=== PATIENT | male | born 1975 | race Caucasian/White ===

== ENCOUNTER 2016-11-02 12:58 | Emergency (ER) | payer OTHER ==
[2016-11-02] MEDS ORDERED: KETOROLAC 60 MG/2 ML VIAL IM STA (13:27)
[2016-11-02] MEDS ORDERED: ACETAMINOPHEN 325 MG TABLET PO STA (13:27)
[2016-11-02] MEDS ORDERED: ACETAMINOPHEN 325 MG TABLET PO ONE (13:32)
[2016-11-02] MEDS ORDERED: KETOROLAC 60 MG/2 ML VIAL ONE (13:32)
[2016-11-02] MEDS ORDERED: AZITHROMYCIN 250 MG TABLET PO STA (14:12)
[2016-11-02] MEDS ORDERED: AZITHROMYCIN 250 MG TABLET PO ONE (14:13)
== END 2016-11-02 14:25 | disposition home or self-care (01) ==
DX: J18.1 Lobar pneumonia, unspecified organism (principal); G47.30 Sleep apnea, unspecified; G40.909 Epilepsy, unspecified, not intractable, without status epilepticus
CPT/HCPCS: 71020; 87275; 87276; 96372; 99283; 99284; A9270

== ENCOUNTER 2017-05-27 17:00 | Emergency (ER) | payer OTHER ==
[2017-05-27] MEDS ORDERED: LIDOCAINE 2%-EPI 1:100000 20 ML MDV SUBQ STA (17:49)
--- NOTE | 2017-05-27 17:50 | ED Physician Documentation ---
PD HPI UPPER EXT INJURY - Stated complaint Stated Complaint: LT HAND LAC - Chief complaint Chief Complaint: Laceration - History obtained from History obtained from: Patient - History of Present Illness Location: Left (Right-handed gentleman, up-to-date on tetanus, lacerated his first dorsal webspace of the left hand with a broken drill bit while working at home just prior to arrival, he wonders if there is retained drill bit. No weakness, numbness, or tingling.) Review of Systems Constitutional: denies: Fever, Chills Respiratory: denies: Dyspnea, Cough GI: denies: Abdominal Pain, Nausea, Vomiting PD PAST MEDICAL HISTORY - Past Medical History Respiratory: CPAP use Neuro: Seizure disorder, Other Musculoskeletal: Chronic back pain - Past Surgical History Past Surgical History: Yes General: Other Ortho: Carpal Tunnel surgery, Other - Present Medications Home Medications: Ambulatory Orders Medication Instructions Recorded Confirmed Lisinopril 40 mg PO DAILY 11/02/16 05/27/17 [place] 0 mg PO DAILY 11/02/16 05/27/17 Morphine Sulfate 15 mg PO PRN PRN 11/02/16 05/27/17 Trazodone HCl 200 mg PO DAILY 11/02/16 05/27/17 Propranolol [Inderal] 0 mg PO DAILY 05/27/17 05/27/17 Sertraline [Zoloft] 0 mg PO DAILY 05/27/17 05/27/17 - Allergies Allergies/Adverse Reactions: Allergies Allergy/AdvReac Type Severity Reaction Status Date / Time bupropion HCl * AdvReac Unknown Verified 05/27/17 17:13 [From Wellbutrin] oxycodone AdvReac Nausea Verified 05/27/17 17:13 - Social History Does the pt smoke?: No Smoking Status: Never smoker Does the pt drink ETOH?: No Does the pt have substance abuse?: No - Immunizations Immunizations are current?: Yes - POLST Patient has POLST: No PD ED PE NORMAL - Vitals Vital signs reviewed: Yes - General General: Alert and oriented X 3, No acute distress - Extremities Extremities: Other (In the dorsal first webspace of the left hand there is a 1.5 cm shallow laceration without extensor tendon damage of the first or second finger or neurovascular compromise of either of those fingers. There is no obvious foreign body.) - Neuro Neuro: Alert and oriented X 3, Normal speech - Psych Psych: Normal mood, Normal affect Results - Vitals Vitals: Vital Signs - 24 hr 05/27/17 17:07 Temperature 36.3 C L Heart Rate 56 L Respiratory 16 Rate Blood Pressure 136/84 H O2 Saturation 97 Oxygen O2 Source Room air - Rads (name of study) L hand 2v Radiology: EMP read contemporaneously (No FB) Procedures - Laceration (location) L hand Length in cm: 1.5 Wound type: Linear Neurovascular status: Sensory intact, Motor intact, Vascular intact Tendon involvement: Tendon intact Anesthesia: Lidocaine 2% with epi Wound Preparation: Hibiclens, Irrigated copiously NS Skin layer closure: Nylon, Interrupted, Size #-0 - enter number (4-0), Sutures - enter # (4) Other: Patient tolerated well, No complications, Neurovascular intact, Tetanus UTD Complexity: Simple Departure - Departure Disposition: 01 Home, Self Care Clinical Impression: Laceration Condition: Good Record reviewed to determine appropriate education?: Yes Instructions: ED Laceration Hand Comments: Come back for any signs of infection which would include: Redness, swelling, drainage, increased pain, or fevers. Follow-up with your physician in 10-14 days for suture removal. Your blood pressure was elevated today on check into the emergency department. This does not mean that you have hypertension, it is a common phenomenon to come to the emergency department and have elevated blood pressure. I recommend that she see her primary care physician within the week to have it rechecked when you are feeling better.
[2017-05-27] MEDS ORDERED: LIDOCAINE MPF 2%-EPI 1:200000 20 ML VIAL ONE (17:53)
--- NOTE | 2017-05-27 18:27 | XRAY Preliminary Report ---
Exam: XR Hand 2 View LT IMPRESSION: 1. No acute fracture or dislocation of the left hand. 2. Soft tissue swelling at the thenar eminence. 3. No foreign body seen. [facility] SITE ID: [id number]
--- NOTE | 2017-05-27 18:30 | XRAY Report ---
EXAM: LEFT HAND RADIOGRAPHY EXAM DATE: 05/27/2017 06:14 PM. CLINICAL HISTORY: Lac dorsal 1st webspace, ? metal FB. COMPARISON: None. TECHNIQUE: 2 views. FINDINGS: Bones: Normal. No fractures or bone lesions. Joints: Normal. No subluxations. Soft Tissues: Soft tissue swelling noted at the thenar eminence. No radiopaque foreign objects are se en. IMPRESSION: 1. No acute fracture or dislocation of the left hand. 2. Soft tissue swelling at the thenar eminence. 3. No foreign body seen. [facility] Referring Provider Line: [phone] SITE ID: [id number]
[2017-05-27 18:41] VITALS: BP 131/83
== END 2017-05-27 18:50 | disposition home or self-care (01) ==
LOC: ED 17:00
DX: S61.412A Laceration without foreign body of left hand, initial encounter (principal); W29.8XXA Contact with other powered hand tools and household machinery, initial encounter; Y92.019 Unspecified place in single-family (private) house as the place of occurrence of the external cause
CPT/HCPCS: 12001; 99283

== ENCOUNTER 2017-09-23 11:11 | Outpatient (CLI) | payer OTHER ==
--- NOTE | 2017-09-23 17:00 | MRI Report ---
EXAM: RIGHT SHOULDER MRI WITHOUT CONTRAST EXAM DATE: 09/23/2017 11:47 AM. CLINICAL HISTORY: Right shoulder pain. History of rotator cuff labral debridement surgery. Increasing pain. COMPARISON: Prior MRI 06/24/2012. TECHNIQUE: Multiplanar, multisequence T1-weighted and fluid-sensitive sequences of the shoulder witho ut contrast. Other: None. FINDINGS: Rotator cuff: 3 mm focus of intrasubstance insertional tear of the supraspinatus. Mild patchy edema i nvolving distal fibers of the supraspinatus and infraspinatus. No rotator cuff muscle atrophy or fatt y replacement. Long head biceps tendon: Absence of the intra-articular long head biceps tendon. Postsurgical change of previous biceps tenodesis. Blunting of the superior labrum consistent with previous partial resect ion. Some heterogenous signal within the inferior labrum. Unchanged from prior. No definitive labral tear on this non-arthrographic study. Bones and articular surfaces: No significant articular cartilage defects are seen. Acromioclavicular joint: Moderate degenerative change with osteophyte formation. Type II acromion. Sm all amount of fluid in the subacromial subdeltoid bursa. IMPRESSION: 1. Intact biceps tenodesis. 2. Mild supraspinatus and infraspinatus tendinosis. 3. Tiny 3 mm low-grade intrasubstance insertional tear of the supraspinatus. 4. Minimal subacromial subdeltoid bursitis. 5. Moderate degenerative change at the acromioclavicular joint. [facility] MUSCULOSKELETAL [facility]IOLOGY SECTION Referring Provider Line: [phone] SITE ID: [id number]
== END 2017-09-23 11:12 | disposition home or self-care (01) ==
LOC: DI 11:11
PROVIDERS: ATTEND Physician Assistant
DX: M75.101 Unspecified rotator cuff tear or rupture of right shoulder, not specified as traumatic (principal); M75.51 Bursitis of right shoulder; M19.011 Primary osteoarthritis, right shoulder; M75.91 Shoulder lesion, unspecified, right shoulder

== ENCOUNTER 2017-12-04 22:09 | Emergency (ER) | payer OTHER ==
[2017-12-04] MEDS ORDERED: SODIUM CHLORIDE 0.9% 1,000 ML IV ONE (22:35)
[2017-12-04] MEDS ORDERED: ONDANSETRON 4 MG/2 ML VIAL IVP STA (22:35)
[2017-12-04] MEDS ORDERED: METOCLOPRAMIDE 10 MG/2 ML VIAL IVP STA (22:36)
[2017-12-04] MEDS ORDERED: KETOROLAC 60 MG/2 ML VIAL IVP STA (22:36)
[2017-12-04] MEDS ORDERED: diphenhydrAMINE INJ 50 MG/ML VIAL IVP STA (22:36)
[2017-12-04 22:49] LABS: BASOPHILS # (AUTO) 0.2 10^3/uL (0.0-0.1); BASOPHILS % (AUTO) 1.5 %; EOSINOPHILS # (AUTO) 0.3 10^3/uL (0.0-0.7); EOSINOPHILS % (AUTO) 2.7 %; HGB - HEMOGLOBIN 14.7 g/dL (14.0-18.0); LYMPHOCYTES # (AUTO) 2.6 10^3/uL (1.5-3.5); LYMPHOCYTES % (AUTO) 23.5 %; MEAN CORPUSCULAR HEMOGLOBIN 30.8 pg (27.0-31.0); MEAN CORPUSCULAR HGB CONC 34.6 g/dL (32.0-36.0); MEAN CORPUSCULAR VOLUME 88.9 fL (80.0-94.0); MEAN PLATELET VOLUME 7.7 fL (7.4-11.4); MONOCYTES % (AUTO) 9.5 %; NEUTROPHILS # (AUTO) 6.9 10^3/uL (1.5-6.6); NEUTROPHILS % (AUTO) 62.8 %; PLT - PLATELET COUNT 262 10^3/uL (130-450); RED BLOOD COUNT 4.76 10^6/uL (4.70-6.10); RED CELL DISTRIBUTION WIDTH 13.5 % (12.0-15.0); WHITE BLOOD COUNT 10.9 x10^3/uL (4.8-10.8)
--- NOTE | 2017-12-04 23:17 | CT Preliminary Report ---
Exam: CT HEAD W/O IMPRESSION: Normal head CT. [facility] SITE ID: [id number]
--- NOTE | 2017-12-04 23:27 | CT Report ---
EXAM: CT HEAD EXAM DATE: 12/04/2017 10:59 PM. CLINICAL HISTORY: Recurrent headaches, vomiting and dizziness. COMPARISON: Brain MRI from 10/25/[address] from 08/10/2016. TECHNIQUE: Multiaxial CT images were obtained from the foramen magnum to the vertex. Reformats: Coron al. IV contrast: None. In accordance with CT protocol optimization, one or more of the following dose reduction techniques w ere utilized for this exam: automated exposure control, adjustment of mA and/or KV based on patient s ize, or use of iterative reconstructive technique. FINDINGS: Parenchyma: No intraparenchymal hemorrhage. No evidence of mass, midline shift, or CT findings of inf arction. Montano-white differentiation is distinct. Extraaxial Spaces: Normal for age. No subdural or epidural collections identified. Ventricles: Normal in size and position. Sinuses and Orbits: Imaged paranasal sinuses, orbits, and mastoids show no significant abnormality. Bones: No evidence of fracture or calvarial defect. IMPRESSION: Normal head CT. [facility] Referring Provider Line: [phone] SITE ID: [id number]
[2017-12-04 23:34] LABS: ALBUMIN 4.5 g/dL (3.2-5.5); ALBUMIN/GLOBULIN RATIO 1.5 (1.0-2.2); CALCIUM 9.2 mg/dL (8.5-10.3); CREATININE 0.8 mg/dL (0.6-1.2); TOTAL PROTEIN 7.5 g/dL (6.7-8.2)
[2017-12-05] MEDS ORDERED: MECLIZINE 12.5 MG TABLET PO STA (00:49)
[2017-12-05 00:59] LABS: LIPASE 490 U/L (22-51)
[2017-12-05 01:00] LABS: AMYLASE 853 U/L (28-100)
[2017-12-05] MEDS ORDERED: SODIUM CHLORIDE 0.9% 1,000 ML IV ONE (01:07)
[2017-12-05 01:11] LABS: BILIRUBIN,URINE NEGATIVE (NEGATIVE); GLUCOSE, URINE (UA) NEGATIVE (NEGATIVE); KETONES,URINE (UA) NEGATIVE (NEGATIVE); LEUKOCYTE ESTERASE, URINE NEGATIVE (NEGATIVE); NITRITE,URINE NEGATIVE (NEGATIVE); OCCULT BLOOD,URINE NEGATIVE (NEGATIVE); PROTEIN,URINE NEGATIVE (NEGATIVE); UROBILINOGEN,URINE 0.2 (NORMAL) E.U./dL (NORMAL)
[2017-12-05 01:14] LABS: CLARITY,URINE CLEAR (CLEAR)
[2017-12-05] MEDS ORDERED: IOPAMIDOL-300 100 ML VIAL ONE (01:22)
[2017-12-05] MEDS ORDERED: IOPAMIDOL-300 100 ML VIAL IVP ONE (01:40)
--- NOTE | 2017-12-05 02:09 | CT Preliminary Report ---
Exam: CT ABDOMEN/PELVIS W/ IMPRESSION: Negative abdomen and pelvis CT. Of note, this does not exclude the clinical diagnosis of pancreatitis . [id number]
--- NOTE | 2017-12-05 02:20 | CT Report ---
EXAM: CT ABDOMEN AND PELVIS EXAM DATE: 12/05/2017 01:44 AM. CLINICAL HISTORY: Vomiting, elevated lipase and amylase. COMPARISONS: None. TECHNIQUE: Routine helical CT imaging was performed through the abdomen and pelvis. IV contrast: 100 mL Isovue 370. Enteric contrast: No . Reconstructions: Coronal and sagittal. In accordance with CT protocol optimization, one or more of the following dose reduction techniques w ere utilized for this exam: automated exposure control, adjustment of mA and/or KV based on patient s ize, or use of iterative reconstructive technique. FINDINGS: Lung Bases: Unremarkable. Liver: Unremarkable. No suspicious masses. Gallbladder/Bile Ducts: Unremarkable. Spleen: Unremarkable. Pancreas: Unremarkable. Adrenal Glands: Unremarkable. Kidneys: Unremarkable. No suspicious masses or hydronephrosis. Peritoneal Cavity/Bowel: No bowel obstruction or inflammatory process seen. No free air or significan t free fluid. No masses or adenopathy. The appendix is normal. No excessive stool burden. Pelvic Organs: Bladder and prostate appear unremarkable. Vasculature: No aneurysms or other significant abnormality. Bones: No significant abnormality. Other: Previous right inguinal hernia repair. IMPRESSION: Negative abdomen and pelvis CT. Of note, this does not exclude the clinical diagnosis of pancreatitis . [facility] Referring Provider Line: [phone] SITE ID: [id number]
[2017-12-05 02:23] VITALS: BP 130/83
--- NOTE | 2017-12-05 02:31 | ED Physician Documentation ---
History of Present Illness - Stated complaint Stated Complaint: GARRETT/VOMITING - Chief complaint Chief Complaint: Abd Pain - History obtained from History obtained from: Patient, Family - History of Present Illness Timing: How many weeks ago (10) - Additonal information Additional information: patient is a 42 year old male with a history of anxiety, depression ptsd who is presenting to the emergency department for headache, nausea and dysequilibrium. patient states that since september he has felt off balance. he reports that he has felt slighly off balance, similar to how you feel if you have been on a boat. patient states that he had had nausea and vomiting the last couple of days. patient sates that he had a nausea medicine at home but he ran out of ReadOz so he ended up throwing up his meds. Patient states that since he has been throwing up he has developed a headache. Review of Systems Constitutional: denies: Fever, Chills, Myalgias Eyes: denies: Decreased vision, Photophobia Ears: denies: Ear pain, Drainage/discharge Nose: reports: Reviewed and negative Throat: reports: Sore throat Cardiac: denies: Chest pain / pressure Respiratory: denies: Cough, Wheezing GI: reports: Nausea, Vomiting. denies: Abdominal Pain, Abdominal Swelling, Constipation, Diarrhea : denies: Dysuria, Frequency Skin: denies: Rash, Lesions Neurologic: reports: Reviewed and negative Immunocompromised: denies: Immunocompromised PD PAST MEDICAL HISTORY - Past Medical History Respiratory: CPAP use Neuro: Seizure disorder, Other Musculoskeletal: Chronic back pain - Past Surgical History Past Surgical History: Yes General: Other Ortho: Carpal Tunnel surgery, Other - Present Medications Home Medications: Ambulatory Orders Medication Instructions Recorded Confirmed Lisinopril 40 mg PO DAILY 11/02/16 05/27/17 [place] 0 mg PO DAILY 11/02/16 05/27/17 Morphine Sulfate 15 mg PO PRN PRN 11/02/16 05/27/17 Trazodone HCl 200 mg PO DAILY 11/02/16 05/27/17 Propranolol [Inderal] 0 mg PO DAILY 05/27/17 05/27/17 Sertraline [Zoloft] 0 mg PO DAILY 05/27/17 05/27/17 Meclizine [Antivert] 25 mg PO Q6H #20 tablet 12/05/17 Ondansetron Odt [Zofran] 4 mg TL Q6H PRN #20 tablet 12/05/17 - Allergies Allergies/Adverse Reactions: Allergies Allergy/AdvReac Type Severity Reaction Status Date / Time bupropion HCl * AdvReac Unknown Verified 05/27/17 17:13 [From Wellbutrin] oxycodone AdvReac Nausea Verified 05/27/17 17:13 - Social History Does the pt smoke?: No Smoking Status: Never smoker Does the pt drink ETOH?: No Does the pt have substance abuse?: No - Immunizations Immunizations are current?: Yes - POLST Patient has POLST: No PD ED PE NORMAL - General General: Alert and oriented X 3, No acute distress, Well developed/nourished - HEENT HEENT: Atraumatic, PERRL, Moist mucous membranes - Neck Neck: Supple, no meningeal sign, No bony TTP - Cardiac Cardiac: RRR, No murmur - Respiratory Respiratory: No respiratory distress - Abdomen Abdomen: Soft, Non tender, Non distended - Derm Derm: Normal color, Warm and dry, No rash - Extremities Extremities: No deformity, Normal ROM s pain, No calf tenderness / cord - Neuro Neuro: Alert and oriented X 3, family medicine resident 2-12 intact, No motor deficit, No sensory deficit, Normal speech Eye Opening: Spontaneous Motor: Obeys Commands Verbal: Oriented GCS Score: 15 Results - Vitals Vitals: Vital Signs - 24 hr 12/04/17 12/04/17 12/05/17 22:15 23:36 02:22 Temperature 35.9 C L 37.2 C 36.8 C Heart Rate 59 L 63 64 Respiratory 18 19 18 Rate Blood Pressure 146/109 H 129/83 H 130/83 H O2 Saturation 100 97 98 Oxygen O2 Source Room air - Labs Labs: Laboratory Tests 12/04/17 12/04/17 12/04/17 01:02 22:45 22:45 WBC 10.9 H RBC 4.76 Hgb 14.7 Hct 42.3 MCV 88.9 MCH 30.8 MCHC 34.6 RDW 13.5 Plt Count 262 MPV 7.7 Neut # 6.9 H Lymph # 2.6 Jack # 1.0 Eos # 0.3 Baso # 0.2 H Absolute Nucleated RBC 0.00 Nucleated RBC % 0.0 Sodium 139 Potassium 3.9 Chloride 106 Carbon Dioxide 26 Anion Gap 7.0 BUN 14 Creatinine 0.8 Estimated GFR (MDRD) 105 Glucose 99 Calcium 9.2 Total Bilirubin 1.0 AST 22 ALT 24 Alkaline Phosphatase 50 Total Protein 7.5 Albumin 4.5 Globulin 3.0 Albumin/Globulin Ratio 1.5 Amylase Lipase 530 H Urine Color YELLOW Urine Clarity CLEAR Urine pH 6.0 Ur Specific [place] 1.015 Urine Protein NEGATIVE Urine Glucose (UA) NEGATIVE Urine Ketones NEGATIVE Urine Occult Blood NEGATIVE Urine Nitrite NEGATIVE Urine Bilirubin NEGATIVE Urine Urobilinogen 0.2 (NORMAL) Ur Leukocyte Esterase NEGATIVE Ur Microscopic Review NOT INDICATED Urine Culture Comments NOT INDICATED 12/04/17 22:45 WBC RBC Hgb Hct MCV MCH MCHC RDW Plt Count MPV Neut # Lymph # Jack # Eos # Baso # Absolute Nucleated RBC Nucleated RBC % Sodium Potassium Chloride Carbon Dioxide Anion Gap BUN Creatinine Estimated GFR (MDRD) Glucose Calcium Total Bilirubin AST ALT Alkaline Phosphatase Total Protein Albumin Globulin Albumin/Globulin Ratio Amylase 853 H* Lipase 490 H Urine Color Urine Clarity Urine pH Ur Specific [place] Urine Protein Urine Glucose (UA) Urine Ketones Urine Occult Blood Urine Nitrite Urine Bilirubin Urine Urobilinogen Ur Leukocyte Esterase Ur Microscopic Review Urine Culture Comments - Rads (name of study) ct head Radiology: Final report received (normal ) ct abd pelvis Radiology: Final report received (normal) PD MEDICAL DECISION MAKING - ED course Complexity details: reviewed old records, reviewed results, re-evaluated patient , considered differential, d/w patient, d/w family ED course: Patient was seen and examined at bedside. IV access was gained and labs were drawn. Patient was treated with ns bolus, toradol, reglan, bendadryl and zofran. CT head was ordered due to the duration of symptoms and family history of brain CA. patient's CT head was within normal limits. When patient's labs came back he was found to have elevated lipase, and it remained elevated on repeat. Patient had no epigastric pain. CT was ordered to evaluate the pancreas because clinically he did not fit the picture. CT abd pelvis was within normal limits. patient had no episodes of emesis while in the emergency department and was stable for discharge with outpatient follow up. Departure - Departure Disposition: 01 Home, Self Care Clinical Impression: Gastritis, Generalized headaches Condition: Good Instructions: ED Gastritis Follow-Up: Venus Jasso MD [Primary Care Provider] - Within 1 week Prescriptions: Meclizine [Antivert] 25 mg PO Q6H #20 tablet Ondansetron Odt [Zofran] 4 mg TL Q6H PRN #20 tablet PRN Reason: Nausea / Vomiting Comments: Your diagnostics today were within normal limits aside from the lipase levels which can correlate with pancreatic disease but your CT of your pancreas revealed no abnormality. It is important to stay well hydrated. You can take the zofran as needed for nausea and vomiting. You should follow up with your doctor to re-check your pancreas levels. You may return to the emergency department at any time for new, worsening or uncontrollable symptoms.
== END 2017-12-05 02:47 | disposition home or self-care (01) ==
LOC: ED 22:09
DX: K29.70 Gastritis, unspecified, without bleeding (principal); R51 Headache; R74.8 Abnormal levels of other serum enzymes; Z80.8 Family history of malignant neoplasm of other organs or systems
CPT/HCPCS: 36415; 70450; 74177; 80053; 81003; 82150; 83690; 85025; 96361; 96374; 99283; 99284; A9270; Q9967; 81001; 87086

== ENCOUNTER 2018-07-12 15:12 | Emergency (ER) | payer MEDICARE, OTHER ==
[2018-07-12] MEDS ORDERED: METHOCARBAMOL 500 MG TABLET PO STA (15:58)
[2018-07-12] MEDS ORDERED: MORPHINE 10 MG/ML VIAL IM STA (15:58)
[2018-07-12] MEDS ORDERED: DEXAMETHASONE 10 MG/ML VIAL PO STA (15:58)
[2018-07-12] MEDS ORDERED: KETOROLAC 60 MG/2 ML VIAL IM STA (15:58)
--- NOTE | 2018-07-12 16:03 | ED Physician Documentation ---
PD HPI BACK PAIN - Stated complaint Stated Complaint: BACK PX - Chief complaint Chief Complaint: Back Pain - History obtained from History obtained from: Patient, Family - History of Present Illness Timing - onset: How many days ago (2) Timing - duration: Days (2) Timing - details: Gradual onset Pain level max: 10 Pain level now: 5 Location: Lower, Right Quality: Pain, Spasm, Similar to prior episodes Associated symptoms: No: Fever, Weakness, Numbness, Incontinent of urine, Unable to urinate, Hematuria, Incontinent of stool Improves with: Rest Worsened by: Lifting (states moves furniture) Contributing factors: Lifting Similar symptoms before: Diagnosis (has chronic back pain) Recently seen: Not recently seen Review of Systems Constitutional: denies: Fever, Chills Cardiac: denies: Chest pain / pressure Respiratory: denies: Dyspnea GI: denies: Abdominal Pain, Vomiting, Diarrhea Skin: denies: Rash Musculoskeletal: denies: Neck pain Neurologic: denies: Focal weakness, Numbness, Headache PD PAST MEDICAL HISTORY - Past Medical History Past Medical History: Yes Respiratory: CPAP use Musculoskeletal: Chronic back pain - Past Surgical History Past Surgical History: Yes General: Appendectomy, Other Ortho: Shoulder arthroplasty, Carpal Tunnel surgery, Other - Present Medications Home Medications: Ambulatory Orders Medication Instructions Recorded Confirmed Lisinopril 40 mg PO DAILY 11/02/16 05/27/17 [place] 0 mg PO DAILY 11/02/16 05/27/17 Morphine Sulfate 15 mg PO PRN PRN 11/02/16 05/27/17 Trazodone HCl 200 mg PO DAILY 11/02/16 05/27/17 Propranolol [Inderal] 0 mg PO DAILY 05/27/17 05/27/17 Sertraline [Zoloft] 0 mg PO DAILY 05/27/17 05/27/17 Meclizine [Antivert] 25 mg PO Q6H #20 tablet 12/05/17 Ondansetron Odt [Zofran] 4 mg TL Q6H PRN #20 tablet 12/05/17 Carisoprodol [Soma] 350 mg PO Q8H PRN #20 tablet 07/12/18 Hydrocodone/Acetaminophen 1 - 2 each PO Q6H PRN #14 tablet 07/12/18 [Hydrocodon-Acetaminophen 5-325] Meloxicam [Mobic] 15 mg PO DAILY PRN #20 tablet 07/12/18 predniSONE [Deltasone] 10 mg PO [id number] #42 tab 07/12/18 - Allergies Allergies/Adverse Reactions: Allergies Allergy/AdvReac Type Severity Reaction Status Date / Time bupropion HCl * AdvReac Unknown Verified 07/12/18 15:18 [From Wellbutrin] oxycodone AdvReac Nausea Verified 07/12/18 15:18 - Social History Does the pt smoke?: No Smoking Status: Former smoker Does the pt drink ETOH?: No Does the pt have substance abuse?: No - Immunizations Immunizations are current?: Yes - POLST Patient has POLST: No PD ED PE NORMAL - Vitals Vital signs reviewed: Yes - General General: Alert and oriented X 3, No acute distress - HEENT HEENT: Moist mucous membranes - Neck Neck: Supple, no meningeal sign - Cardiac Cardiac: RRR, Strong equal pulses - Respiratory Respiratory: No respiratory distress, Clear bilaterally - Abdomen Abdomen: Soft, Non tender, Non distended - Back Back: No spinal TTP, Other (no midline TTP, no stepoff or deformity. paraspinal spasm R low lumbar.) - Derm Derm: Warm and dry - Extremities Extremities: Normal ROM s pain, Other (normal bilateral lower extremity patellar and ankle jerk reflexes. Normal great toe extension bilaterally. no saddle an esthesia) - Neuro Neuro: Alert and oriented X 3 Results - Vitals Vitals: Vital Signs - 24 hr 07/12/18 07/12/18 07/12/18 15:16 16:48 17:03 Temperature 36 C L Heart Rate 56 L 50 L 48 L Respiratory 18 14 18 Rate Blood Pressure 132/71 H 142/90 H 121/89 H O2 Saturation 98 98 97 Oxygen O2 Source Room air PD MEDICAL DECISION MAKING - ED course Complexity details: reviewed results, re-evaluated patient, considered differential (no cauda equina, no spinal epidural abscess, no fracture, no aortic dissection or evidence of aneursym rupture), d/w patient, d/w family ED course: Patient is a 42-year-old male who presents to the emergency department with acute on chronic low back pain. Worse after visiting his chiropractor. Feels improved after pain medications here. Will prescribe pain medication for home as well as muscle relaxants and follow-up closely with his doctor. No evidence of cauda equina, epidural abscess. No IV drug use. No fevers. Patient counseled regarding signs and symptoms for which I believe and urgent re- evaluation would be necessary. Patient with good understanding of and agreement to plan and is comfortable going home at this time This document was made in part using voice recognition software. While efforts are made to proofread this document, sound alike and grammatical errors may occur. - Sepsis Event Vital Signs: Vital Signs - 24 hr 07/12/18 07/12/18 07/12/18 15:16 16:48 17:03 Temperature 36 C L Heart Rate 56 L 50 L 48 L Respiratory 18 14 18 Rate Blood Pressure 132/71 H 142/90 H 121/89 H O2 Saturation 98 98 97 Oxygen O2 Source Room air Departure - Departure Disposition: 01 Home, Self Care Clinical Impression: Low back strain Qualifiers: Encounter type: initial encounter Qualified Code(s): S39.012A - Strain of muscle, fascia and tendon of lower back, initial encounter Condition: Good Instructions: ED Sprain Strain Lumbar, ED Sciatica Follow-Up: Venus Jasso MD [Primary Care Provider] - Within 3 Days Prescriptions: Carisoprodol [Soma] 350 mg PO Q8H PRN #20 tablet PRN Reason: back pain Hydrocodone/Acetaminophen [Hydrocodon-Acetaminophen 5-325] 1 - 2 each PO Q6H PRN #14 tablet PRN Reason: pain Meloxicam [Mobic] 15 mg PO DAILY PRN #20 tablet PRN Reason: pain predniSONE [Deltasone] 10 mg PO [id number] #42 tab Comments: Return if you worsen. This should improve over the next few days. Do not drink alcohol or drive while on narcotic pain medicine. Note that many narcotic pain relievers also contain tylenol/acetaminophen. Please ensure that your total dose of acetaminophen from all sources does not exceed 3 grams (3000mg) per day. You may constipated on this medication, take a stool softener such as "Colace" twice a day while you are on it. Also recommend a [id number]-[id number] laxative such as senna or MiraLAX any day that you do not have a bowel movement. If you received narcotic pain medication in the emergency department, do not drive or operate machinery for the next 24 hours. Discharge Date/Time: 07/12/18 17:03
[2018-07-12 17:12] VITALS: BP 121/89
== END 2018-07-12 17:03 | disposition home or self-care (01) ==
LOC: ED 15:12
DX: S39.012A Strain of muscle, fascia and tendon of lower back, initial encounter (principal); X50.0XXA Overexertion from strenuous movement or load, initial encounter; Y93.89 Activity, other specified; Z87.891 Personal history of nicotine dependence
CPT/HCPCS: 96372; 99283; A9270

== ENCOUNTER 2018-07-26 20:22 | Emergency (ER) | payer MEDICARE, OTHER ==
--- NOTE | 2018-07-26 20:44 | ED Physician Documentation ---
PD HPI HEADACHE - Stated complaint Stated Complaint: GARRTET - Chief complaint Chief Complaint: Heent - History obtained from History obtained from: Patient - History of Present Illness Timing - onset: How many weeks ago (1 week of some mild headache after rash and on Prednisone. Today with onset of migraine type headache that did not respond to Imitrex.) Timing - onset during: Light activity Timing - duration: Weeks (1) Timing - details: Gradual onset, Still present Worst headache ever?: No: Worst headache ever? Location: Right Quality: Throbbing, Aching Improved by: Dark room. No: Meds (tried hi imitrex without improvement.) Worsened by: Light Contributing factors: No: Recent illness, Trauma Similar symptoms before: Diagnosis (migraines) Recently seen: Clinic (seen for rash recently and R with Prednisone. Rash is improved. His headache started steadily after that though. He thinks the Pred is causing some of it. Then with worse headache today c/w migraine.) Review of Systems Constitutional: denies: Fever, Chills, Myalgias Nose: denies: Rhinorrhea / runny nose, Congestion Throat: denies: Sore throat Respiratory: denies: Cough GI: reports: Nausea, Vomiting. denies: Abdominal Pain, Diarrhea Neurologic: reports: Headache. denies: Focal weakness, Numbness, Altered mental status, Head injury PD PAST MEDICAL HISTORY - Past Medical History Past Medical History: Yes Cardiovascular: Hypertension Respiratory: CPAP use Neuro: Migraines Endocrine/Autoimmune: None GI: Hiatal hernia : None HEENT: None Psych: Depression Musculoskeletal: Chronic back pain Derm: None - Past Surgical History Past Surgical History: Yes General: Appendectomy, Other Ortho: Shoulder arthroplasty, Carpal Tunnel surgery, Other - Present Medications Home Medications: Ambulatory Orders Medication Instructions Recorded Confirmed [place] 0 mg PO DAILY 11/02/16 05/27/17 Trazodone HCl 200 mg PO DAILY 11/02/16 05/27/17 Propranolol [Inderal] 0 mg PO DAILY 05/27/17 05/27/17 Sertraline [Zoloft] 0 mg PO DAILY 05/27/17 05/27/17 Ondansetron Odt [Zofran] 4 mg TL Q6H PRN #20 tablet 12/05/17 Carisoprodol [Soma] 350 mg PO Q8H PRN #20 tablet 07/12/18 Ondansetron Odt [Zofran] 4 mg TL Q6H PRN #15 tablet 07/26/18 - Allergies Allergies/Adverse Reactions: Allergies Allergy/AdvReac Type Severity Reaction Status Date / Time bupropion HCl * AdvReac Unknown Verified 07/26/18 20:36 [From Wellbutrin] oxycodone AdvReac Nausea Verified 07/26/18 20:36 - Social History Does the pt smoke?: No Smoking Status: Never smoker Does the pt drink ETOH?: No Does the pt have substance abuse?: No - Immunizations Immunizations are current?: Yes - POLST Patient has POLST: No PD ED PE NORMAL - Vitals Vital signs reviewed: Yes - General General: Alert and oriented X 3, No acute distress, Well developed/nourished - HEENT HEENT: PERRL (light sensitive), Pharynx benign - Neck Neck: Supple, no meningeal sign, No adenopathy - Cardiac Cardiac: RRR, No murmur - Respiratory Respiratory: Clear bilaterally - Abdomen Abdomen: Soft, Non tender - Derm Derm: Normal color, Warm and dry - Extremities Extremities: No deformity, No tenderness to palpate, No edema, No calf tenderness / cord - Neuro Neuro: Alert and oriented X 3, electrical sign servicer 2-12 intact, No motor deficit, No sensory deficit, Normal speech Eye Opening: Spontaneous Motor: Obeys Commands Verbal: Oriented GCS Score: 15 Results - Vitals Vitals: Oxygen O2 Source Room air PD MEDICAL DECISION MAKING - ED course Complexity details: re-evaluated patient (headache about gone with migraine meds. ), considered differential (today seems like migraine. Has had some mild headache since Rx for allergy, so could be having some steroid headache prior. ), d/w patient - Sepsis Event Vital Signs: Oxygen O2 Source Room air Departure - Departure Disposition: 01 Home, Self Care Clinical Impression: Migraine headache Qualifiers: Migraine type: without aura Status migrainosus presence: with status migrainosus Intractability: not intractable Qualified Code(s): G43.001 - Migraine without aura, not intractable, with status migrainosus Condition: Stable Record reviewed to determine appropriate education?: Yes Instructions: ED Headache Migraine Follow-Up: Venus Jasso MD [Primary Care Provider] - Prescriptions: Ondansetron Odt [Zofran] 4 mg TL Q6H PRN #15 tablet PRN Reason: Nausea / Vomiting Comments: Drink lots of fluids. Home and rest tonight. Use ondansetron along with your Imitrex as needed for repeat migraines. Recheck if her recurrent symptoms over the next day or 2. Discharge Date/Time: 07/26/18 22:39
[2018-07-26] MEDS ORDERED: KETOROLAC 60 MG/2 ML VIAL IVP STA (21:07)
[2018-07-26] MEDS ORDERED: SODIUM CHLORIDE 0.9% 1,000 ML IV ONE (21:07)
[2018-07-26] MEDS ORDERED: diphenhydrAMINE INJ 50 MG/ML VIAL IVP STA (21:07)
[2018-07-26] MEDS ORDERED: PROCHLORPERAZINE 10 MG/2 ML VIAL IVP STA (21:07)
[2018-07-26] MEDS ORDERED: ACETAMINOPHEN 1,000 MG/100 ML 100 ML IV STA (21:08)
[2018-07-26 22:38] VITALS: BP 113/73
== END 2018-07-26 22:39 | disposition home or self-care (01) ==
LOC: ED 20:22
DX: G43.001 Migraine without aura, not intractable, with status migrainosus (principal); I10 Essential (primary) hypertension
CPT/HCPCS: 96365; 96375; 99283; 99284; J0131; J1200

== ENCOUNTER 2018-10-24 12:27 | Outpatient (CLI) | payer OTHER, MEDICARE ==
--- NOTE | 2018-10-24 20:15 | MRI Report ---
Reason: LUMBAR SPINE PAIN Procedure Date: 10/24/2018 Accession Number: [id number] / [id number] Procedure: MRI - Lumbar Spine W/O CPT Code: FULL RESULT: EXAM: MRI LUMBAR SPINE WITHOUT CONTRAST EXAM DATE: 10/24/2018 01:04 PM. CLINICAL HISTORY: Lumbar spine pain. COMPARISON: LUMBAR SPINE 06/27/2016 4:30 PM. TECHNIQUE: Multiplanar, multisequence T1-weighted and fluid-sensitive sequences of the lumbar spine from T12 to S1 without contrast. Other: None. FINDINGS: Spinal Canal: The conus terminates at L1. The conus medullaris and cauda equina are unremarkable. Alignment: No scoliosis or spondylolisthesis. Bone Marrow: Five [id number] lumbar vertebral bodies are assumed. No gross fractures or bone lesions. No bone marrow replacement. Disk Levels/Facets: T12-L1: Moderate disk degeneration posterior 2 mm disk protrusion osteophyte complex. Left posterolateral 2 mm disk protrusion with high signal annulus fissure and mild left foraminal stenosis (image 5 series 301). Posterior 2 mm disk protrusion contacts the anterior aspect distal thoracic cord without cord deformity. L1-L2: Mild disk degeneration. Negative for spinal canal stenosis or foraminal stenosis. Schmorl's node superior L2 vertebral body endplate. L2-L3: Preservation of disk height and signal. Negative for spinal canal stenosis. L3-L4: Unremarkable. L4-L5: Mild disk degeneration. Facet joints are within normal limits. Far right lateral 3 mm disk protrusion/extrusion with effacement of exiting right L4 nerve root and mild right foraminal stenosis. Negative for interval change as compared to the MRI lumbar spine 01/26/2016. L5-S1: Posterior 2 mm disk protrusion with high signal annulus fissure. Moderate disk degeneration. Mild left foraminal stenosis from disk degeneration and foraminal 2 mm disk protrusion osteophyte complex. Negative for interval change as compared to the MRI 06/27/2016. Mild right foraminal stenosis from disk degeneration and endplate spurring which is unchanged as compared to the MRI lumbar spine 06/27/2016. Musculature: Normal. No edema or fatty atrophy. Other: The partially visualized retroperitoneum is unremarkable. IMPRESSION: 1. Far right lateral L4-L5 3 mm disk extrusion/protrusion with mild right foraminal stenosis and effacement of exiting right L4 nerve root without change as compared to the MRI lumbar spine 06/27/2016. 2. Mild bilateral L5-S1 foraminal stenosis without interval change. 3. Mild left T12-L1 foraminal stenosis from left posterolateral 2 mm disk protrusion which is unchanged as compared to the MRI lumbar spine 06/27/2016. Comment: The following findings are so common in adults without low back pain that while we report their presence, they must be interpreted with caution and in the context of the clinical situation. (Reference Genarok et al, Spine 2001) Prevalence of findings in patients without low back pain: Disk degeneration (any evidence): 92% Disk desiccation/T2 signal loss: 83% Disk height loss: 56% Disk bulge: 64% Disk protrusion: 32% Annular tear/high intensity zone: 38% [facility]
== END 2018-10-24 12:28 | disposition home or self-care (01) ==
LOC: DI 12:27
PROVIDERS: ATTEND Physical Medicine & Rehabilitation Pain Medicine
DX: M51.36 Other intervertebral disc degeneration, lumbar region (principal); M51.35 Other intervertebral disc degeneration, thoracolumbar region; M51.26 Other intervertebral disc displacement, lumbar region; M51.25 Other intervertebral disc displacement, thoracolumbar region; M51.27 Other intervertebral disc displacement, lumbosacral region; M48.061 Spinal stenosis, lumbar region without neurogenic claudication; M48.07 Spinal stenosis, lumbosacral region
CPT/HCPCS: 72148

== ENCOUNTER 2018-11-10 23:17 | Emergency (ER) | payer MEDICARE, OTHER ==
--- NOTE | 2018-11-11 01:41 | ED Physician Documentation ---
PD HPI HEADACHE - Stated complaint Stated Complaint: GARRETT - Chief complaint Chief Complaint: Neuro - History obtained from History obtained from: Patient - History of Present Illness Timing - onset: How many days ago (2) Timing - duration: Days Timing - details: Gradual onset, Constant, Waxing and waning Worst headache ever?: No: Worst headache ever? Location: Left Quality: Throbbing Associated symptoms: Nausea, Vomiting. No: Fever, Stiff neck, Weakness, Numbness Improved by: Rest, Dark room, Quiet Worsened by: Light, Noise, Moving Similar symptoms before: Diagnosis (c/w his previous migraine headaches, but did not respond to imitrex at home) Recently seen: Not recently seen Review of Systems Constitutional: denies: Fever, Chills, Sweats Eyes: reports: Photophobia. denies: Loss of vision, Decreased vision GI: reports: Nausea, Vomiting. denies: Abdominal Pain Neurologic: reports: Headache. denies: Focal weakness, Numbness, Confused, Altered mental status PD PAST MEDICAL HISTORY - Past Medical History Past Medical History: Yes Cardiovascular: Hypertension Respiratory: CPAP use Neuro: Migraines Endocrine/Autoimmune: None GI: Hiatal hernia : None HEENT: None Psych: Depression Musculoskeletal: Chronic back pain Derm: None - Past Surgical History Past Surgical History: Yes General: Appendectomy, Other Ortho: Shoulder arthroplasty, Carpal Tunnel surgery, Other - Present Medications Home Medications: Ambulatory Orders Medication Instructions Recorded Confirmed [place] 0 mg PO DAILY 11/02/16 05/27/17 Trazodone HCl 200 mg PO DAILY 11/02/16 05/27/17 Propranolol [Inderal] 0 mg PO DAILY 05/27/17 05/27/17 Sertraline [Zoloft] 0 mg PO DAILY 05/27/17 05/27/17 Ondansetron Odt [Zofran] 4 mg TL Q6H PRN #20 tablet 12/05/17 Carisoprodol [Soma] 350 mg PO Q8H PRN #20 tablet 07/12/18 Ondansetron Odt [Zofran] 4 mg TL Q6H PRN #15 tablet 07/26/18 Ondansetron Odt [Zofran] 4 mg TL Q6H PRN #10 tablet 11/11/18 Promethazine [Phenergan] 25 - 50 mg PO Q6H PRN #10 tab 11/11/18 - Allergies Allergies/Adverse Reactions: Allergies Allergy/AdvReac Type Severity Reaction Status Date / Time bupropion HCl * AdvReac Unknown Verified 11/10/18 23:30 [From Wellbutrin] oxycodone AdvReac Nausea Verified 11/10/18 23:30 - Social History Does the pt smoke?: No Smoking Status: Never smoker Does the pt drink ETOH?: No Does the pt have substance abuse?: No - Immunizations Immunizations are current?: Yes - POLST Patient has POLST: No PD ED PE NORMAL - Vitals Vital signs reviewed: Yes - General General: Alert and oriented X 3, Well developed/nourished, Other (appears uncomfortable) - HEENT HEENT: PERRL, EOMI, Other (photophobic) - Neck Neck: Supple, no meningeal sign - Cardiac Cardiac: RRR, No murmur - Respiratory Respiratory: No respiratory distress, Clear bilaterally - Derm Derm: Normal color, Warm and dry - Neuro Neuro: Alert and oriented X 3, claims processor 2-12 intact, No motor deficit, No sensory deficit, Normal speech Eye Opening: Spontaneous Motor: Obeys Commands Verbal: Oriented GCS Score: 15 Results - Vitals Vitals: Vital Signs - 24 hr 11/10/18 11/11/18 11/11/18 23:28 02:38 03:02 Temperature 36.7 C 36.4 C L Heart Rate 57 L 65 68 Respiratory 18 17 15 Rate Blood Pressure 142/98 H 141/84 H 136/80 H O2 Saturation 95 97 99 Oxygen O2 Source Room air PD MEDICAL DECISION MAKING - ED course Complexity details: reviewed old records, re-evaluated patient, considered differential, d/w patient ED course: patient confirms what his previous chart shows, which is that he responds well to toradol and phenergan. He was also given benadryl and ofirmev along with IV fluids on last visit, and thus this regimen was given again tonight with good result. On reevaluation, patient reports substantial relief of his symptoms, and he feels well enough to go home and declines any other medications in ED prior to d/c. Departure - Departure Disposition: 01 Home, Self Care Clinical Impression: Migraine Condition: Good Instructions: ED Headache Migraine Prescriptions: Ondansetron Odt [Zofran] 4 mg TL Q6H PRN #10 tablet PRN Reason: Nausea / Vomiting Promethazine [Phenergan] 25 - 50 mg PO Q6H PRN #10 tab PRN Reason: Nausea / Vomiting Discharge Date/Time: 11/11/18 03:08
[2018-11-11] MEDS ORDERED: SODIUM CHLORIDE 0.9% 1,000 ML IV STA (01:50)
[2018-11-11] MEDS ORDERED: ACETAMINOPHEN 1,000 MG/100 ML 100 ML IV STA (01:50)
[2018-11-11] MEDS ORDERED: PROMETHAZINE INJ 25 MG in SODIUM CHLORIDE 0.9% 50 ML IV STA (01:51)
[2018-11-11] MEDS ORDERED: KETOROLAC 30 MG/ML VIAL IVP STA (01:51)
[2018-11-11] MEDS: diphenhydrAMINE INJ 50 MG/ML VIAL IVP STA ×2 (02:15)
[2018-11-11 03:08] VITALS: BP 136/80
== END 2018-11-11 03:08 | disposition home or self-care (01) ==
LOC: ED 23:17
DX: G43.909 Migraine, unspecified, not intractable, without status migrainosus (principal); I10 Essential (primary) hypertension
CPT/HCPCS: 96365; 96368; 96375; 99283; J0131; J1200; J7040

== ENCOUNTER 2018-12-23 12:10 | Outpatient (CLI) | payer OTHER ==
[2018-12-23] MEDS ORDERED: GADOPENTETATE DIMEGLUMINE 5 ML VIAL IVP ONE (13:21)
[2018-12-23] MEDS: GADOPENTETATE DIMEGLUMINE 5 ML VIAL IVP ONE (13:22)
[2018-12-23] MEDS ORDERED: IOTHALAMATE MEGLUMINE 50 ML VIAL ONE (13:31)
[2018-12-23] MEDS ORDERED: BUFFERED LIDOCAINE 10 ML SYRINGE ONE (13:31)
[2018-12-23] MEDS: IOTHALAMATE MEGLUMINE 50 ML VIAL IVP ONE (13:38)
[2018-12-23] MEDS: BUFFERED LIDOCAINE 10 ML SYRINGE IU ONE (13:38)
--- NOTE | 2018-12-23 15:18 | MRI Report ---
Reason: IMPINGEMENT SYNDROME OF RIGHT SHOULDER Procedure Date: 12/23/2018 Accession Number: [id number] / [id number] Procedure: MRI - Arthrogram Shoulder RT CPT Code: FULL RESULT: EXAM: RIGHT SHOULDER MRI ARTHROGRAM WITH CONTRAST EXAM DATE: 12/23/2018 01:02 PM. CLINICAL HISTORY: IMPINGEMENT SYNDROME OF RIGHT SHOULDER. COMPARISON: None. TECHNIQUE: Multiplanar, multisequence T1-weighted and fluid-sensitive sequences of the shoulder after an arthrographic injection of dilute gadolinium, dictated under a separate exam. Other: None. FINDINGS: Acromioclavicular Region: The acromion is type II. Mild acromioclavicular joint osteoarthritis. The coracoacromial and coracoclavicular ligaments are intact. There is no contrast or fluid in the subacromial/subdeltoid bursa. Glenohumeral Region: No subluxation. No loose bodies. The articular cartilage is unremarkable. The glenohumeral ligaments and joint capsule are unremarkable. Bone Marrow: Small linear hypointense focus at the anterior aspect of the proximal humeral diaphysis which is most likely related to the previous biceps tenodesis. Labrum: There is blunting at the free edge of the superior labrum. No discrete labral tear is seen. Biceps Tendon: Previous biceps tenodesis. Musculature/Rotator Cuff: There is supraspinatus and infraspinatus tendinosis. Teres minor and subscapularis tendons are unremarkable. No edema or fatty atrophy. Other: The subcutaneous tissues are unremarkable. IMPRESSION: 1. Previous biceps tenodesis. 2. Blunting at the free edge of the superior labrum, which may be postoperative and/or degenerative in etiology. 3. Supraspinatus and infraspinatus tendinosis. No rotator cuff tear. 4. Mild acromial clavicular joint osteoarthritis. [facility] MUSCULOSKELETAL RADIOLOGY SECTION
--- NOTE | 2018-12-23 16:17 | XRAY Report ---
Reason: IMPINGEMENT SYNDROME OF RIGHT SHOULDER Procedure Date: 12/23/2018 Accession Number: [id number] / [id number] Procedure: FL - Arthrogram Needle Placement CPT Code: FULL RESULT: EXAM: RIGHT SHOULDER ARTHROGRAPHIC INJECTION WITH FLUOROSCOPIC GUIDANCE EXAM DATE: 12/23/2018 01:03 PM. CLINICAL HISTORY: Impingement syndrome of right shoulder. COMPARISON: Arthrogram shoulder right 12/23/2018 1:02 PM. TECHNIQUE: The risks, benefits, and alternatives of the procedure were discussed with the patient. All questions were answered. Written and verbal consent were obtained. The glenohumeral joint was marked under fluoroscopy and prepped and draped in a sterile manner. Local anesthesia was performed with 1% lidocaine. A 22-gauge needle was then inserted into the glenohumeral joint. 10 mL of a solution containing 25% 1% lidocaine, 25% iodinated contrast, and a 1:200 dilution of gadolinium contrast in sterile saline was then injected. The needle was removed without immediate complication. Other: None. Fluoroscopy Time: 3 seconds. Number of Images: 5. FINDINGS: Bones and joints: No fracture or subluxation. Injection: Fluoroscopic images demonstrate needle placement and contrast in the glenohumeral joint. No contrast extravasation outside of the glenohumeral joint. IMPRESSION: Successful fluoroscopically guided arthrographic injection of the shoulder. [facility]
== END 2018-12-23 12:11 | disposition home or self-care (01) ==
LOC: DI 12:10
PROVIDERS: ATTEND Orthopaedic Surgery
DX: M19.011 Primary osteoarthritis, right shoulder (principal); M67.911 Unspecified disorder of synovium and tendon, right shoulder
CPT/HCPCS: 23350; 73222; 77002; Q9961

== ENCOUNTER 2019-03-16 12:38 | Day surgery (SDC) | payer OTHER ==
[2019-03-16] MEDS ORDERED: LACTATED RINGERS 1,000 ML IV ONE (13:12)
--- NOTE | 2019-03-16 13:45 | ANESTHESIA ---
Pre-Anesthesia VS, & Labs - Diagnosis screening exam - Procedure colonoscopy Vital Signs: Temp Pulse Resp BP Pulse Ox 36.5 C 58 L 16 136/87 H 98 03/16/19 12:45 03/16/19 12:45 03/16/19 12:45 03/16/19 12:45 03/16/19 12:45 Height 5 ft 9 in Weight (kg) 86.7 kg Body Mass Index 37.3 - NPO >8 hours Last Fluid Intake: H2O at 11am Home Medications and Allergies [place] 0 mg PO DAILY 11/02/16 Trazodone HCl 200 mg PO DAILY 11/02/16 Propranolol [Inderal] 0 mg PO DAILY 05/27/17 Sertraline [Zoloft] 0 mg PO DAILY 05/27/17 Allergies/Adverse Reactions: Allergies Allergy/AdvReac Type Severity Reaction Status Date / Time bupropion HCl * AdvReac Unknown Verified 11/10/18 23:30 [From Wellbutrin] oxycodone AdvReac Nausea Verified 11/10/18 23:30 Anes History & Medical History - Anesthetic History Anesthesia Complications: reports: No previous complications - Medical History Cardiovascular: reports: Hypertension Pulmonary: reports: Sleep apnea, CPAP use Gastrointestinal: reports: Hiatal hernia Urinary: reports: None Neuro: reports: Migraines, Seizure disorder (last seizure 10 years ago. due to wellbutrin) Musculoskeletal: reports: Chronic back pain Endocrine/Autoimmune: reports: None Blood Disorders: reports: None Skin: reports: None Smoking Status: Former smoker (quit 1998) Psychosocial: reports: Depression - Surgical History General: Appendectomy, Other Orthopedic: Shoulder arthroplasty, Carpal Tunnel surgery, Other Exam General: Alert, Oriented x3, Cooperative, No acute distress Dental: WNL Mouth Openin Fingerbreadth Neck Mobility: Normal Thyromental Distance: greater than 6 cm Respiratory: Lungs clear, Normal breath sounds, No respiratory distress, No accessory muscle use Cardiovascular: Regular rate, Normal S1, Normal S2, No murmurs Mental/Cognitive Status: Alert/Oriented X3, Normal for patient Plan Anesthesia Type: MAC Consent for Procedure(s) Verified and Reviewed: Yes Code Status: Attempt Resuscitation ASA classification: 2-Mild systemic disease Is this case an emergency?: No
[2019-03-16] MEDS ORDERED: MIDAZOLAM 2 MG/2 ML VIAL ONE (14:00)
[2019-03-16] MEDS ORDERED: fentaNYL 100 MCG/2 ML VIAL ONE (14:00)
[2019-03-16 14:43] VITALS: BP 115/74
== END 2019-03-16 12:39 | disposition home or self-care (01) ==
LOC: SDS 12:38
PROVIDERS: ATTEND Surgery
PROC: 0DJD8ZZ Inspection of Lower Intestinal Tract, Via Natural or Artificial Opening Endoscopic (ICD-10-PCS; principal; 2019-03-16 14:45)
DX: Z12.11 Encounter for screening for malignant neoplasm of colon (principal); K64.8 Other hemorrhoids; Z86.010 Personal history of colon polyps; I10 Essential (primary) hypertension; G47.30 Sleep apnea, unspecified; G40.909 Epilepsy, unspecified, not intractable, without status epilepticus; Z87.891 Personal history of nicotine dependence
CPT/HCPCS: 45378; J7120

== ENCOUNTER 2020-03-05 09:39 | Emergency (ER) | payer OTHER ==
--- NOTE | 2020-03-05 10:09 | ED Physician Documentation ---
PD HPI UPPER EXT INJURY - Stated complaint Stated Complaint: R HAND PX - Chief complaint Chief Complaint: Ext Problem - History obtained from History obtained from: Patient - History of Present Illness Location: Right, Hand Type of injury: Other (he has had problems with trigger finger right middle finger and had release surgery by Ortho in [place] (?) in October and then re peat soon after when it seemed locked/stuck again with stiffness. Had been healing okay without drainage. Has had intermittent swelling of the area since surgery. The past few days has had swelling and redness palmar and dorsal MCP area middle right finger. Denies redness nor swelling nor pains episodes in other joints.). No: Twist Timing - onset: How many days ago (few) Timing - duration: Days (few) Timing - details: Gradual onset, Still present Worsened by: Moving, Palpating Associated symptoms: Swelling, Discolored (redness). No: Weakness, Numbness Contributing factors: No: Anticoagulated Similar symptoms before: Diagnosis (presumed inflammation episode previously that improved with steroids orally and NSAIDs. Had been started on abx one time for similar but his Ortho stopped it after just a day, presuming inflammatory again and got better without ongoing abx but just the steroid and pain meds.) Recently seen: Not recently seen Review of Systems Constitutional: denies: Fever, Chills, Myalgias Nose: denies: Rhinorrhea / runny nose, Congestion Throat: denies: Sore throat Respiratory: denies: Cough GI: denies: Abdominal Pain, Nausea, Vomiting, Diarrhea Skin: denies: Lesions (no open sores nor drainage.) PD PAST MEDICAL HISTORY - Past Medical History Cardiovascular: Hypertension Respiratory: Sleep apnea, CPAP use Neuro: Migraines, Seizure disorder (last seizure 10 years ago. due to wellbutrin) Endocrine/Autoimmune: None GI: Hiatal hernia : None HEENT: None Psych: Depression Musculoskeletal: Chronic back pain, Other (no hisory of gout) Derm: None - Past Surgical History Past Surgical History: Yes General: Appendectomy, Other Ortho: Shoulder arthroplasty, Carpal Tunnel surgery, Other - Present Medications Home Medications: Ambulatory Orders Medication Instructions Recorded Confirmed [place] 0 mg PO DAILY 11/02/16 05/27/17 Trazodone HCl 200 mg PO DAILY 11/02/16 05/27/17 Propranolol [Inderal] 0 mg PO DAILY 05/27/17 05/27/17 Sertraline [Zoloft] 0 mg PO DAILY 05/27/17 05/27/17 Ondansetron Odt [Zofran] 4 mg TL Q6H PRN #20 tablet 12/05/17 Carisoprodol [Soma] 350 mg PO Q8H PRN #20 tablet 07/12/18 Ondansetron Odt [Zofran] 4 mg TL Q6H PRN #15 tablet 07/26/18 Ondansetron Odt [Zofran] 4 mg TL Q6H PRN #10 tablet 11/11/18 Promethazine [Phenergan] 25 - 50 mg PO Q6H PRN #10 tab 11/11/18 Cephalexin [Keflex] 500 mg PO Q6H #28 capsule 03/05/20 Naproxen 500 mg PO BID #20 tablet 03/05/20 - Allergies Allergies/Adverse Reactions: Allergies Allergy/AdvReac Type Severity Reaction Status Date / Time bupropion HCl * AdvReac Unknown Verified 03/05/20 09:42 [From Wellbutrin] oxycodone AdvReac Nausea Verified 03/05/20 09:42 - Social History Does the pt smoke?: No Smoking Status: Former smoker (quit 1998) Does the pt drink ETOH?: No Does the pt have substance abuse?: No - Immunizations Immunizations are current?: Yes - POLST Patient has POLST: No PD ED PE NORMAL - Vitals Vital signs reviewed: Yes - General General: Alert and oriented X 3, Well developed/nourished, Other (in pain due to right hand swelling/redness) - Cardiac Cardiac: RRR, No murmur - Respiratory Respiratory: Clear bilaterally - Derm Derm: Normal color, Warm and dry - Extremities Extremities: Other (right hand with swelling and tenderness palmar and dorsal areas around the middle finger MCP and just proximal onto the palm. Mild redness, and mild/medium warmth. Very tender to palpation. No sores nor fluctuance, no drainage. Limited flexion due to swelling and stiffness, which he says has been mostly that way post-op but worse with current swelling. ) - Neuro Neuro: Alert and oriented X 3, No motor deficit, No sensory deficit Results - Vitals Vitals: Vital Signs - 24 hr 03/05/20 03/05/20 09:42 12:29 Temperature 36.2 C L Heart Rate 60 51 L Respiratory 18 18 Rate Blood Pressure 127/69 127/83 H O2 Saturation 98 97 Oxygen O2 Source Room air - Labs Labs: Laboratory Tests 03/05/20 03/05/20 03/05/20 10:41 10:41 10:41 WBC 6.5 RBC 4.30 L Hgb 13.5 L Hct 39.6 L MCV 92.1 MCH 31.4 H MCHC 34.1 RDW 12.6 Plt Count 221 MPV 9.9 Neut # (Auto) 4.0 Lymph # (Auto) 1.5 Terry # (Auto) 0.8 Eos # (Auto) 0.1 Baso # (Auto) 0.1 Absolute Nucleated RBC 0.00 Nucleated RBC % 0.0 ESR 10 Sodium 139 Potassium 4.6 Chloride 108 Carbon Dioxide 24 Anion Gap 7.0 BUN 16 Creatinine 0.9 Estimated GFR (MDRD) 91 Glucose 101 H Uric Acid 3.6 Calcium 8.6 Total Bilirubin 0.5 AST 22 ALT 27 Alkaline Phosphatase 57 C-Reactive Protein 2.7 H Total Protein 6.3 L Albumin 3.7 Globulin 2.6 Albumin/Globulin Ratio 1.4 Lipase 36 - Rads (name of study) right hand Radiology: Prelim report reviewed (contour irregular around 4th or 5th MCP head. No changes/bony problems at middle finger MCP area . ), See rad report PD MEDICAL DECISION MAKING - ED course Complexity details: reviewed results, considered differential (possible infection though less likely this far out post op without skin sore or injury. No other joint areas hurting to suggest RA or gout, and hsi ESR and WBC are okay. Xray without bony changes in that area. Can use NSAIDss. He is due to have repeat surgery this coming week, so pt says his ortho did not want Rx of steroids. Low suspicion for cellulitis, but can give abx pending surgery to be sure. I might suggest the Ortho get some fluid for crystal exam during surgery if there is some tendon fluid to be had. Do not want it to be stiff, so forego a splint for now. ), d/w patient Departure - Departure Disposition: 01 Home, Self Care Clinical Impression: Hand swelling Qualifiers: Laterality: right Qualified Code(s): M79.89 - Other specified soft tissue disorders Condition: Stable Record reviewed to determine appropriate education?: Yes Follow-Up: Venus Jasso MD [Primary Care Provider] - Prescriptions: Cephalexin [Keflex] 500 mg PO Q6H #28 capsule Naproxen 500 mg PO BID #20 tablet Comments: Your blood count and sed rate (inflammation marker) and uric acid are normal so not suggestive of infection or gout or systemic arthritis. It is less likely to have a local infection but he is enough to cover with an antibiotic in case. Otherwise continue with an anti-inflammatory of naproxen 3 times a day. Cool towels to the area and elevate the hand to reduce swelling. Follow-up with your orthopedic Discharge Date/Time: 03/05/20 12:29
[2020-03-05] MEDS ORDERED: HYDROcod/ACETAM 5/325 MG TABLET PO STA (10:29)
[2020-03-05] MEDS ORDERED: KETOROLAC 30 MG/ML VIAL IM STA (10:29)
[2020-03-05 10:49] LABS: BASOPHILS # (AUTO) 0.1 10^3/uL (0.0-0.1); BASOPHILS % (AUTO) 0.9 %; EOSINOPHILS # (AUTO) 0.1 10^3/uL (0.0-0.7); EOSINOPHILS % (AUTO) 2.2 %; HGB - HEMOGLOBIN 13.5 g/dL (14.0-18.0); LYMPHOCYTES # (AUTO) 1.5 10^3/uL (1.5-3.5); LYMPHOCYTES % (AUTO) 22.5 %; MEAN CORPUSCULAR HEMOGLOBIN 31.4 pg (27.0-31.0); MEAN CORPUSCULAR HGB CONC 34.1 g/dL (32.0-36.0); MEAN CORPUSCULAR VOLUME 92.1 fL (80.0-94.0); MEAN PLATELET VOLUME 9.9 fL (7.4-11.4); MONOCYTES # (AUTO) 0.8 10^3/uL (0.0-1.0); MONOCYTES % (AUTO) 11.6 %; NEUTROPHILS % (AUTO) 62.5 %; PLT - PLATELET COUNT 221 10^3/uL (130-450); RED CELL DISTRIBUTION WIDTH 12.6 % (12.0-15.0); WHITE BLOOD COUNT 6.5 x10^3/uL (4.8-10.8)
[2020-03-05 11:06] LABS: ALBUMIN 3.7 g/dL (3.2-5.5); ALBUMIN/GLOBULIN RATIO 1.4 (1.0-2.2); BILIRUBIN,TOTAL 0.5 mg/dL (0.2-1.0); CALCIUM 8.6 mg/dL (8.5-10.3); CREATININE 0.9 mg/dL (0.6-1.2); CRP - C-REACTIVE PROTEIN 2.7 mg/dL (0-1.0); TOTAL PROTEIN 6.3 g/dL (6.7-8.2); URIC ACID 3.6 mg/dL (2.6-7.2)
--- NOTE | 2020-03-05 12:12 | XRAY Report ---
Reason: hand swelling/red; post op from Oct Procedure Date: 03/05/2020 Accession Number: [id number] / [id number] Procedure: XR - Hand 3 View RT CPT Code: Final Report FULL RESULT: EXAM: RIGHT HAND RADIOGRAPHY EXAM DATE: 03/05/2020 10:50 AM. CLINICAL HISTORY: Hand swelling/red; post op from Oct. COMPARISON: XR HAND MIN 3 VIEWS 09/26/2010 6:23 AM. TECHNIQUE: 3 views. FINDINGS: Bones: There is cortical irregularity noted on lateral view likely at the base of the fourth/fifth metacarpals. Bony mineralization appears to be within normal limits. Joints: Normal. No subluxations. Soft Tissues: Diffuse soft tissue swelling noted, prominent in the central aspect of the hand. IMPRESSION: 1. Cortical irregularity noted on lateral view, likely at the base of the fourth/fifth metacarpals. Underlying fracture should be considered. There is associated moderate soft tissue swelling prominent in the central hand. Correlate clinically with focal tenderness. CT may be helpful for further evaluation. RADIA
[2020-03-05 12:30] VITALS: BP 127/83
== END 2020-03-05 12:29 | disposition home or self-care (01) ==
LOC: ED 09:39
DX: M79.641 Pain in right hand (principal); M79.644 Pain in right finger(s); M79.89 Other specified soft tissue disorders; I10 Essential (primary) hypertension; Z87.891 Personal history of nicotine dependence
CPT/HCPCS: 36415; 73130; 80053; 83690; 84550; 85025; 85651; 86140; 96372; 99283; 99284; A9270

== ENCOUNTER 2021-04-19 19:18 | Emergency (ER) | payer MEDICARE, OTHER ==
[2021-04-19] MEDS ORDERED: diphenhydrAMINE INJ 50 MG/ML VIAL IVP STA (19:58)
[2021-04-19] MEDS ORDERED: SODIUM CHLORIDE 0.9% 1,000 ML IV STA (19:58)
--- NOTE | 2021-04-19 20:16 | ED Physician Documentation ---
History of Present Illness - Stated complaint Stated Complaint: GARRETT - Chief complaint Chief Complaint: Neuro - Additonal information Additional information: 45-year-old male presents to the emergency department for evaluation of 4 days unabated headache. He does have a history of migraines and this is typical to others in the past. He has tried his Fioricet as well as Imitrex at home without relief. He has a light and noise sensitivity. Some nausea no vomiting. No recent falls or trauma no fevers. No vision changes. Review of Systems Constitutional: denies: Fever, Chills Eyes: reports: Photophobia. denies: Loss of vision Ears: reports: Other (Noise sensitivity) Nose: reports: Reviewed and negative Throat: reports: Reviewed and negative Cardiac: reports: Reviewed and negative Respiratory: reports: Reviewed and negative GI: reports: Reviewed and negative : reports: Reviewed and negative PD PAST MEDICAL HISTORY - Past Medical History Past Medical History: Yes Cardiovascular: Hypertension Respiratory: Sleep apnea, CPAP use Neuro: Migraines, Seizure disorder Endocrine/Autoimmune: None GI: Hiatal hernia : None HEENT: None Psych: Depression Musculoskeletal: Chronic back pain, Other Derm: None - Past Surgical History Past Surgical History: Yes General: Appendectomy, Other Ortho: Shoulder arthroplasty, Carpal Tunnel surgery, Other - Present Medications Home Medications: Ambulatory Orders Medication Instructions Recorded Confirmed [place] [[place] Carbonate] 0 mg PO DAILY 11/02/16 05/27/17 Trazodone HCl 200 mg PO DAILY 11/02/16 05/27/17 Propranolol [Inderal] 0 mg PO DAILY 05/27/17 05/27/17 Sertraline [Zoloft] 0 mg PO DAILY 05/27/17 05/27/17 Ondansetron Odt [Zofran] 4 mg TL Q6H PRN #20 tablet 12/05/17 Carisoprodol [Soma] 350 mg PO Q8H PRN #20 tablet 07/12/18 Ondansetron Odt [Zofran] 4 mg TL Q6H PRN #15 tablet 07/26/18 Ondansetron Odt [Zofran] 4 mg TL Q6H PRN #10 tablet 11/11/18 Promethazine [Phenergan] 25 - 50 mg PO Q6H PRN #10 tab 11/11/18 Naproxen 500 mg PO BID #20 tablet 03/05/20 cephALEXin [Keflex] 500 mg PO Q6H #28 capsule 03/05/20 - Allergies Allergies/Adverse Reactions: Allergies Allergy/AdvReac Type Severity Reaction Status Date / Time bupropion HCl * AdvReac Unknown Verified 04/19/21 19:22 [From Wellbutrin] oxycodone AdvReac Nausea Verified 04/19/21 19:22 - Social History Does the pt smoke?: No Smoking Status: Never smoker Does the pt drink ETOH?: No Does the pt have substance abuse?: No - Immunizations Immunizations are current?: Yes - POLST Patient has POLST: No PD ED PE NORMAL - General General: Alert and oriented X 3, Well developed/nourished - HEENT HEENT: PERRL, EOMI, Moist mucous membranes, Pharynx benign - Neck Neck: Supple, no meningeal sign, No adenopathy, No JVD - Cardiac Cardiac: RRR, No murmur - Respiratory Respiratory: No respiratory distress, Clear bilaterally - Abdomen Abdomen: Normal bowel sounds, Soft, Non tender - Back Back: No CVA TTP, No spinal TTP - Extremities Extremities: No deformity, No tenderness to palpate, Normal ROM s pain - Neuro Neuro: Alert and oriented X 3, oncology social worker 2-12 intact, No motor deficit Eye Opening: Spontaneous Motor: Obeys Commands Verbal: Oriented GCS Score: 15 - Psych Psych: Normal mood, Normal affect Results - Vitals Vitals: Vital Signs - 24 hr 04/19/21 19:23 Temperature 36.5 C Heart Rate 77 Respiratory 18 Rate Blood Pressure 151/100 H O2 Saturation 97 Oxygen O2 Source Room air PD MEDICAL DECISION MAKING - ED course Complexity details: re-evaluated patient, d/w patient ED course: 45-year-old male who has a known history of Migraines presents to the emergency department with 4 days of headache not relieved with his typical regimen at home. he otherwise appears well without any focal neuro deficits. He was administered Compazine, Benadryl as well as a liter of IV fluids. On reevaluation his headache had markedly improved. He was also given 10 mg of Decadron orally to help prevent a reoccurrence. Recommended rest and fluids at home. Reassuringly he has an unremarkable neuro exam with no focal deficits. Emergent return precautions were discussed. Departure - Departure Disposition: Home, Self Care Clinical Impression: Migraine headache Qualifiers: Migraine type: other Status migrainosus presence: without status migrainosus Intractability: not intractable Qualified Code(s): G43.809 - Other migraine, not intractable, without status migrainosus Condition: Stable Record reviewed to determine appropriate education?: Yes Instructions: ED Headache Migraine Follow-Up: Venus Jasso MD [Primary Care Provider] - Comments: Tyrell I am glad that you are feeling better. You were seen in the emergency department today for headache. You were given Benadryl as well as a liter of IV fluids. Your headache is improving. Please make sure that you drink lots of fluids at home and get plenty of rest. I expect that when you wake up in the morning your headache is much better. If at any point your headache is worsening, you have slurred speech droopy face, arm or leg weakness please return immediately to the ER for a second look. discuss this ED visit with your primary doctor when you are able.
[2021-04-19] MEDS ORDERED: DEXAMETHASONE 10 MG/ML VIAL PO STA (21:21)
[2021-04-19] MEDS ORDERED: CHERRY SYRUP 10 ML UDC PO ONE (21:21)
[2021-04-19 22:05] VITALS: BP 140/80
== END 2021-04-19 22:05 | disposition home or self-care (01) ==
LOC: ED 19:18
DX: G43.809 Other migraine, not intractable, without status migrainosus (principal); I10 Essential (primary) hypertension
CPT/HCPCS: 99283; 99284; J1200

== ENCOUNTER 2021-06-23 18:20 | Emergency (ER) | payer MEDICARE, OTHER ==
[2021-06-23 18:36] VITALS: BP 130/89
[2021-06-23] MEDS ORDERED: HYDROmorphone 1 MG/ML CARPUJECT IM STA (19:22)
[2021-06-23] MEDS ORDERED: KETOROLAC 30 MG/ML VIAL IM STA (19:22)
--- NOTE | 2021-06-23 19:24 | ED Physician Documentation ---
PD HPI BACK PAIN - Stated complaint Stated Complaint: BACK PX - Chief complaint Chief Complaint: Back Pain - History obtained from History obtained from: Patient - Additional information Additional information: 45-year-old gentleman has a history of Lumbar radiculopathy. Yesterday after heavy work at home including shoveling and lifting he had an increase in his back pain to a severe level. Its in the right low back, nonradiating. No weakness, numbness, tingling, saddle anesthesia, fevers. He tried a couple of hydrocodone leftover from a prior issue which was helpful. Review of Systems Constitutional: reports: Reviewed and negative Ears: reports: Reviewed and negative Nose: reports: Reviewed and negative Throat: reports: Reviewed and negative Cardiac: reports: Reviewed and negative PD PAST MEDICAL HISTORY - Past Medical History Cardiovascular: Hypertension Respiratory: Sleep apnea, CPAP use Neuro: Migraines, Seizure disorder Endocrine/Autoimmune: None GI: Hiatal hernia : None HEENT: None Psych: Depression Musculoskeletal: Chronic back pain, Other Derm: None - Past Surgical History Past Surgical History: Yes General: Appendectomy, Other Ortho: Shoulder arthroplasty, Carpal Tunnel surgery, Other - Present Medications Home Medications: Ambulatory Orders Medication Instructions Recorded Confirmed [place] [[place] Carbonate] 0 mg PO DAILY 11/02/16 05/27/17 Trazodone HCl 200 mg PO DAILY 11/02/16 05/27/17 Propranolol [Inderal] 0 mg PO DAILY 05/27/17 05/27/17 Sertraline [Zoloft] 0 mg PO DAILY 05/27/17 05/27/17 Ondansetron Odt [Zofran] 4 mg TL Q6H PRN #20 tablet 12/05/17 Carisoprodol [Soma] 350 mg PO Q8H PRN #20 tablet 07/12/18 Ondansetron Odt [Zofran] 4 mg TL Q6H PRN #15 tablet 07/26/18 Ondansetron Odt [Zofran] 4 mg TL Q6H PRN #10 tablet 11/11/18 Promethazine [Phenergan] 25 - 50 mg PO Q6H PRN #10 tab 11/11/18 Naproxen 500 mg PO BID #20 tablet 03/05/20 cephALEXin [Keflex] 500 mg PO Q6H #28 capsule 03/05/20 HYDROcod/ACETAM 5/325 [[place] 5/325] 1 - 2 tab PO Q6H PRN #15 tablet 06/23/21 - Allergies Allergies/Adverse Reactions: Allergies Allergy/AdvReac Type Severity Reaction Status Date / Time bupropion HCl * AdvReac Unknown Verified 06/23/21 18:36 [From Wellbutrin] oxycodone AdvReac Nausea Verified 06/23/21 18:36 - Social History Does the pt smoke?: No Smoking Status: Never smoker Does the pt drink ETOH?: No Does the pt have substance abuse?: No - Immunizations Immunizations are current?: Yes - POLST Patient has POLST: No PD ED PE NORMAL - Vitals Vital signs reviewed: Yes - General General: Alert and oriented X 3, No acute distress (Appears uncomfortable and winces with motion. More comfortable at rest.) - Abdomen Abdomen: Non tender - Back Back: Other (The patient has equal and normal Achilles and patellar reflexes bilaterally. Normal sensation in all areas of the legs. Patient denies saddle anesthesia. Normal strength in flexion-extension at the ankles, knees, and flexion of the hips.) - Neuro Neuro: Alert and oriented X 3, Normal speech Results - Vitals Vitals: Vital Signs - 24 hr 06/23/21 18:34 Temperature 36.2 C L Heart Rate 74 Respiratory 16 Rate Blood Pressure 130/89 H O2 Saturation 97 Oxygen O2 Source Room air PD MEDICAL DECISION MAKING - ED course ED course: This patient has seemingly uncomplicated musculoskeletal back pain. The patient has no "red flags." Specifically denies IV drug use, fevers, incontinence, saddle anesthesia. Spinal epidural abscess was considered, given that the patient has no fever, is not diabetic, has no spinal tenderness, does not use IV drugs, and has no bilateral neurologic symptoms, the diagnosis of spinal epidural abscess is considered exceedingly unlikely. I am prescribing a short course of short-acting opioid pain medication for this patient. I have reviewed the patients MUSIC LIBRARY ASSISTANT and no concerning findings were noted. I have discussed that the opioids are for short term therapy only, and will not be refilled from the ED. Departure - Departure Disposition: 01 Home, Self Care Clinical Impression: Low back strain Qualifiers: Encounter type: initial encounter Qualified Code(s): S39.012A - Strain of muscle, fascia and tendon of lower back, initial encounter Condition: Good Record reviewed to determine appropriate education?: Yes Instructions: ED Low Back Pain Injury Prescriptions: HYDROcod/ACETAM 5/325 [[place] 5/325] 1 - 2 tab PO Q6H PRN #15 tablet PRN Reason: Pain Comments: Prescription was sent electronically to [facility] Call your doctor to arrange a follow-up appointment, make the next available appointment. In the interim, return anytime if worse or if new symptoms develop. I am prescribing a short course of narcotic pain medication for you. These are potentially dangerous and addictive medications that should be used carefully. These medications may constipate you. Take an nriw-ygf-vdnzkiw stool softener (docusate) twice daily with plenty of water while taking these medications. If you go 24 hours without a bowel movement, take hxjy-wll-bxnptkv miralax, per package instructions. Do not drink or drive while taking these medications. If you received narcotic or sedating medications while in the emergency department, do not drive for 24 hours. Store this medication in a safe, secure place and out of reach of children. It is a violation of federal law to give or sell this medication to another person or to use in a manner other than prescribed. The ED will not refill narcotic prescriptions, including prescriptions lost or stolen. To dispose of unwanted medications: 1. [facility] at [address] [facility] in [facility] has a medication drop box. They accept prescription medications (in pill form) Saturday through Saturday 9:00 a.m. to 5:00 p.m. 2. [facility] accepts prescription medications (in pill form only) for disposal year round. Call for more information. 3. Contact the [facility] for the next [facility] sponsored prescription drug collection event. , [phone], or [phone]; Note that many narcotic pain relievers also contain Tylenol/acetaminophen. Please ensure that your total dose of acetaminophen from all sources does not exceed 3 g (3000 mg) per day. Discharge Date/Time: 06/23/21 20:14
== END 2021-06-23 20:14 | disposition home or self-care (01) ==
LOC: ED 18:20
DX: S39.012A Strain of muscle, fascia and tendon of lower back, initial encounter (principal); X50.0XXA Overexertion from strenuous movement or load, initial encounter; Y93.H1 Activity, digging, shoveling and raking; Y92.007 Garden or yard of unspecified non-institutional (private) residence as the place of occurrence of the external cause; M54.16 Radiculopathy, lumbar region; I10 Essential (primary) hypertension
CPT/HCPCS: 96372; 99283; J1170

== ENCOUNTER 2021-12-28 14:36 | Emergency (ER) | payer MEDICARE, OTHER ==
--- NOTE | 2021-12-28 14:54 | ED Physician Documentation ---
PD HPI BACK PAIN - Stated complaint Stated Complaint: BACK INJ - Chief complaint Chief Complaint: Back Pain - History obtained from History obtained from: Patient - History of Present Illness Timing - onset: Today Timing - duration: Hours Timing - details: Abrupt onset, Still present Location: Lower, Right (more to the right, with radiation to right thigh posteriorly. Not to lower leg. No numbness nor weakness.), Left Quality: Pain, Spasm, Similar to prior episodes Associated symptoms: No: Fever, Weakness, Numbness Improves with: No: Rest, Meds (took Ibuprofen without improvement.) Worsened by: Movement, Twisting Contributing factors: Lifting (was lifting items from out of a truck and then jumped down 3 feet from the bed of it. Pain lower back.), Twisting Similar symptoms before: Diagnosis (herniated disc with intermittent flares of pain. No chronic/ongoing problems.) Recently seen: Clinic (went to chiropractor after pain started, without i mprovement. Called PMD for appt, but not until next week.) Review of Systems Constitutional: denies: Fever, Chills, Myalgias Nose: denies: Rhinorrhea / runny nose, Congestion Throat: denies: Sore throat Respiratory: denies: Cough GI: denies: Abdominal Pain, Nausea, Vomiting Skin: denies: Abrasion (s), Laceration (s) Neurologic: denies: Focal weakness, Numbness PD PAST MEDICAL HISTORY - Past Medical History Cardiovascular: Hypertension Respiratory: Sleep apnea, CPAP use Neuro: Migraines, Seizure disorder Endocrine/Autoimmune: None GI: Hiatal hernia : None HEENT: None Psych: Depression Musculoskeletal: Chronic back pain, Other Derm: None - Past Surgical History Past Surgical History: Yes General: Appendectomy, Other Ortho: Shoulder arthroplasty, Carpal Tunnel surgery, Other - Present Medications Home Medications: Ambulatory Orders Medication Instructions Recorded Confirmed [place] [[place] Carbonate] 0 mg PO DAILY 11/02/16 05/27/17 Trazodone HCl 200 mg PO DAILY 11/02/16 05/27/17 Propranolol [Inderal] 0 mg PO DAILY 05/27/17 05/27/17 Sertraline [Zoloft] 0 mg PO DAILY 05/27/17 05/27/17 Ondansetron Odt [Zofran] 4 mg TL Q6H PRN #20 tablet 12/05/17 Carisoprodol [Soma] 350 mg PO Q8H PRN #20 tablet 07/12/18 Ondansetron Odt [Zofran] 4 mg TL Q6H PRN #15 tablet 07/26/18 Ondansetron Odt [Zofran] 4 mg TL Q6H PRN #10 tablet 11/11/18 Promethazine [Phenergan] 25 - 50 mg PO Q6H PRN #10 tab 11/11/18 Naproxen 500 mg PO BID #20 tablet 03/05/20 cephALEXin [Keflex] 500 mg PO Q6H #28 capsule 03/05/20 HYDROcod/ACETAM 5/325 [[place] 5/325] 1 - 2 tab PO Q6H PRN #15 tablet 06/23/21 Hydrocodone/Acetaminophen 1 each PO Q6H PRN #20 tablet 12/28/21 [Hydrocodone-Acetamin 10-325 mg] tiZANidine [Zanaflex] 4 mg PO Q8H PRN #25 tablet 12/28/21 - Allergies Allergies/Adverse Reactions: Allergies Allergy/AdvReac Type Severity Reaction Status Date / Time bupropion HCl * AdvReac Unknown Verified 12/28/21 14:42 [From Wellbutrin] oxycodone AdvReac Nausea Verified 12/28/21 14:42 - Social History Does the pt smoke?: No Smoking Status: Never smoker Does the pt drink ETOH?: No Does the pt have substance abuse?: No - Immunizations Immunizations are current?: Yes - POLST Patient has POLST: No PD ED PE NORMAL - Vitals Vital signs reviewed: Yes - General General: Alert and oriented X 3, Well developed/nourished, Other (guarding movement mainly right lower back. lying to left side on cart. ) - Abdomen Abdomen: Soft, Non tender - Male Male : Deferred - Rectal Rectal: Deferred - Back Back: Other (tender some to midline but mainly to lower back muscles, right more. Generally tender in muscles laterally without localizable trigger point tenderness. ) - Derm Derm: Normal color, Warm and dry, No rash - Neuro Neuro: Alert and oriented X 3, No motor deficit, No sensory deficit (normal sensation dermatomally in legs.), Normal speech Results - Vitals Vitals: Vital Signs - 24 hr 12/28/21 12/28/21 14:42 16:37 Temperature 36.6 C Heart Rate 73 61 Respiratory 18 18 Rate Blood Pressure 150/90 H 126/64 O2 Saturation 98 100 Oxygen O2 Source Room air PD MEDICAL DECISION MAKING - ED course Complexity details: reviewed old records, re-evaluated patient (improved enough with meds in ER. Feels okay to head out with Rx waiting. ), considered differential (low back pain with twisting, mild injury without red flags. ), d/w patient Departure - Departure Disposition: Home, Self Care Clinical Impression: Acute back pain Qualifiers: Back pain location: low back pain Back pain laterality: bilateral Sciatica presence: with sciatica Sciatica laterality: sciatica of right side Qualified Code(s): M54.41 - Lumbago with sciatica, right side Lumbar strain Qualifiers: Encounter type: initial encounter Qualified Code(s): S39.012A - Strain of muscle, fascia and tendon of lower back, initial encounter Condition: Stable Record reviewed to determine appropriate education?: Yes Instructions: ED Sprain Strain Lumbar Follow-Up: [facility] [Provider Group] Prescriptions: Hydrocodone/Acetaminophen [Hydrocodone-Acetamin 10-325 mg] 1 each PO Q6H PRN #20 tablet PRN Reason: Pain tiZANidine [Zanaflex] 4 mg PO Q8H PRN #25 tablet PRN Reason: Spasms Comments: Heat gentle stretching and massage for the low back are good to help reduce spasming and stiffness. Physical modalities such as chiropractic or massage are good as well. Use some anti-inflammatory such as ibuprofen 600 to 800 mg 3 times a day with food for the next several days to a week. Add Tylenol every 4-6 hours if needed for pain or hydrocodone 10/325 every 6 hours for worse pain. You can also add tizanidine muscle relaxant every 6-8 hours if needed for spasms and stiffness. Activity as tolerated with gentle stretching but no heavy lifting or work for the next several days at least. Follow-up with your primary care next week as planned if not fully improved. I transmitted your prescriptions to [facility] in [place]. I am prescribing a short course of narcotic pain medication for you. These are potentially dangerous and addictive medications that should be used carefully. These medications may constipate you. Take an sbpd-ouv-klpouwf stool softener such as docusate twice daily with plenty of water while taking these medications. If you go 24 hours without a bowel movement, take ulrh-oio-eagfjti MiraLAX, per package instructions. Do not drink or drive while taking these medications. If you received narcotic or sedating medications while in the emergency department do not drive for 24 hours. Store this medication in a safe, secure place and out of reach of children. It is a violation of federal law to give or sell this medication to another person or to use in a manner other than prescribed. The ED will not refill narcotic prescriptions, including prescriptions lost or stolen. You can dispose of unwanted medications at the [facility]'s office or at several pharmacies such as [facility]. Discharge Date/Time: 12/28/21 16:39
[2021-12-28] MEDS ORDERED: HYDROmorphone 1 MG/ML CARPUJECT IM STA (15:30)
[2021-12-28] MEDS ORDERED: CYCLOBENZAPRINE 10 MG TABLET PO STA (15:30)
[2021-12-28] MEDS ORDERED: CHERRY SYRUP 10 ML UDC PO ONE (15:32)
[2021-12-28] MEDS ORDERED: ACETAMINOPHEN 325 MG TABLET PO STA (15:32)
[2021-12-28] MEDS ORDERED: DEXAMETHASONE 10 MG/ML VIAL PO STA (15:32)
[2021-12-28 16:39] VITALS: BP 126/64
== END 2021-12-28 16:39 | disposition home or self-care (01) ==
LOC: ED 14:36
DX: S39.012A Strain of muscle, fascia and tendon of lower back, initial encounter (principal); X50.0XXA Overexertion from strenuous movement or load, initial encounter; Y93.39 Activity, other involving climbing, rappelling and jumping off; I10 Essential (primary) hypertension
CPT/HCPCS: 96372; 99282; 99283; A9270; J1170

== ENCOUNTER 2022-10-13 15:28 | Outpatient (CLI) | payer OTHER | END 2022-10-13 15:29 | disposition short-term general hospital (02) | LOC: EMS 15:28 | DX: R07.9 Chest pain, unspecified (principal) | CPT/HCPCS: A0425; A0429 ==

== ENCOUNTER → 2023-12-10 | Outpatient (CLI) | payer MEDICARE, OTHER ==
--- NOTE | 2023-12-10 16:12 | XRAY Report ---
PROCEDURE: Knee 4 View RT INDICATIONS: RIGHT KNEE PAIN TECHNIQUE: 4 views of the knee(s) were acquired. COMPARISON: None. FINDINGS: Bones: No fractures or dislocations. No suspicious bony lesions. Xfqx-kg-izgtgouv tricompartmental osteoarthritic changes, most pronounced in the medial femorotibial compartment. There is hlpf-bf-vilr rate joint space narrowing with weightbearing in the medial compartment. Question a small intra-art icular body in the medial aspect of the knee joint. Soft tissues: Trace knee joint effusion. No suspicious soft tissue calcifications or masses. IMPRESSION: 1. Fmtl-bq-okhvwsje osteoarthritis. 2. Question a small intra-articular body adjacent to the medial aspect of the femorotibial joint. 3. Trace knee joint effusion. Reviewed by: Leon Mitchell MD on 12/10/2023 4:10 PM PST Approved by: Leon Mitchell MD on 12/10/2023 4:10 PM PST Station ID: [id number]
== END ==
LOC: DI.WOS 11:15
PROVIDERS: ATTEND Physician Assistant Surgical
DX: M17.11 Unilateral primary osteoarthritis, right knee (principal); M25.461 Effusion, right knee

== ENCOUNTER 2024-02-04 09:44 | Outpatient (CLI) | payer MEDICARE, OTHER ==
--- NOTE | 2024-02-04 10:54 | MRI Report ---
PROCEDURE: Cervical Spine WO INDICATIONS: CERVICALGIA TECHNIQUE: Noncontrast sagittal T1 spin echo and T2 fast spin echo, sagittal STIR, foraminal oblique sagittal T2 fast spin echo, and axial gradient echo or T2 fast spin echo through the cervical spine. COMPARISON: Correlation is made with report only of cervical spine CT, 09/26/2010 FINDINGS: Image quality: Diagnostic, with note made of motion artifact. Alignment and Curvature: There is straightening of the normal cervical lordosis. No significant AP alignment abnormality can be seen. Bone Marrow: Marrow demonstrates normal overall signal. Spinal Cord: There is a mild degree of increased T2-weighted signal seen within the cervical cord at the C6-C7 level, as on series 3 image 11 and on series 5 image 11. Visualized spinal cord otherwise has normal size and signal. No cerebellar tonsillar herniation. Paraspinous Soft Tissues: No paravertebral masses. Prevertebral soft tissues are normal in thicknes s. C2-C3: The disc height is relatively well preserved. Moderate disc osteophyte complex is seen. Mild facet hypertrophy is seen. There is moderate left-sided and no right-sided neuroforaminal narro wing. No central canal narrowing is seen. C3-C4: The disc height is relatively well preserved. Mild disc osteophyte complex is seen. There is a mild central/left disc osteophyte protrusion. Mild facet hypertrophy is seen. There is moderate to severe left-sided and at least moderate right-sided neuroforaminal narrowing. Minimal to mild jordi tral canal narrowing is seen. C4-C5: The disc height is relatively well preserved. Mild disc osteophyte complex is seen. Mild f acet hypertrophy is seen. Moderate to severe bilateral neuroforaminal narrowing can be seen, right w orse than left. No central canal narrowing is seen. C5-C6: Mild loss of disc height and disc signal are seen. Moderate disc osteophyte complex is seen, which is eccentric to the right. Mild to moderate facet hypertrophy is seen. There is moderate to sev ere bilateral neuroforaminal narrowing, right worse than left. Mild central canal narrowing is seen. C6-C7: Mild loss of disc height and disc signal are seen. Mild to moderate disc osteophyte comple x is seen. There is a central disc osteophyte protrusion. Mild to moderate facet hypertrophy is seen. There is moderate to severe bilateral neuroforaminal narrowing. Mild to moderate central canal narro wing is seen, with minimal mass effect upon the ventral spinal cord. C7-T1: The disc height and disc signal are well preserved. Moderate disc osteophyte complex is see n. Mild facet hypertrophy is seen. There is mild right-sided and mild to moderate left-sided neuro foraminal narrowing. No central canal narrowing is seen. IMPRESSION: Multiple levels of cervical spine degenerative change can be seen, which are overall worst inferiorly . 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 Reviewed by: Xu Ryder MD on 02/04/2024 9:53 AM FAVIOLA Approved by: Xu Ryder MD on 02/04/2024 9:53 AM FAVIOLA Station ID: [id number]
== END 2024-02-04 09:45 | disposition home or self-care (01) ==
LOC: DI 09:44
PROVIDERS: ATTEND Family Medicine
DX: M47.12 Other spondylosis with myelopathy, cervical region (principal); M48.02 Spinal stenosis, cervical region

== ENCOUNTER 2024-03-16 11:26 | Emergency (ER) | payer MEDICARE, OTHER ==
[2024-03-16 12:15] LABS: BASOPHILS # (AUTO) 0.1 10^3/uL (0.0-0.1); BASOPHILS % (AUTO) 1.1 %; EOSINOPHILS # (AUTO) 0.1 10^3/uL (0.0-0.7); EOSINOPHILS % (AUTO) 2.3 %; HCT - HEMATOCRIT 42.1 % (42.0-52.0); HGB - HEMOGLOBIN 14.3 g/dL (14.0-18.0); LYMPHOCYTES # (AUTO) 1.3 10^3/uL (1.5-3.5); LYMPHOCYTES % (AUTO) 30.5 %; MEAN CORPUSCULAR HEMOGLOBIN 30.9 pg (27.0-31.0); MEAN CORPUSCULAR VOLUME 90.9 fL (80.0-94.0); MEAN PLATELET VOLUME 11.7 fL (7.4-11.4); MONOCYTES # (AUTO) 0.5 10^3/uL (0.0-1.0); MONOCYTES % (AUTO) 11.2 %; NEUTROPHILS # (AUTO) 2.4 10^3/uL (1.5-6.6); NEUTROPHILS % (AUTO) 54.7 %; PLT - PLATELET COUNT 251 10^3/uL (130-450); RED BLOOD COUNT 4.63 10^6/uL (4.70-6.10); RED CELL DISTRIBUTION WIDTH 13.4 % (12.0-15.0); WHITE BLOOD COUNT 4.4 x10^3/uL (4.8-10.8)
--- NOTE | 2024-03-16 12:16 | ED Physician Documentation ---
PD HPI BACK PAIN - Stated complaint Stated Complaint: LOW BACK PX - Chief complaint Chief Complaint: Abd Pain - History obtained from History obtained from: Patient - History of Present Illness Timing - onset: How many days ago (2) Timing - details: Abrupt onset, Still present Location: Lower, Right Quality: Pain, Spasm, Aching Associated symptoms: No: Fever, Weakness, Numbness Improves with: No: Rest Worsened by: Movement Contributing factors: No: Trauma Similar symptoms before: Has not had sx before Review of Systems Constitutional: denies: Fever, Chills Cardiac: denies: Chest pain / pressure Respiratory: denies: Dyspnea, Wheezing GI: reports: Abdominal Pain, Nausea. denies: Vomiting, Constipation, Diarrhea Skin: denies: Rash, Lesions Neurologic: denies: Focal weakness, Numbness PD PAST MEDICAL HISTORY - Past Medical History Past Medical History: Yes Cardiovascular: Hypertension Respiratory: Sleep apnea, CPAP use Neuro: Migraines, Seizure disorder Endocrine/Autoimmune: None GI: Hiatal hernia : None HEENT: None Psych: Depression Musculoskeletal: Chronic back pain, Other Derm: None - Past Surgical History Past Surgical History: Yes General: Appendectomy, Other Ortho: Shoulder arthroplasty, Carpal Tunnel surgery, Other - Present Medications Home Medications: Ambulatory Orders Medication Instructions Recorded Confirmed Trazodone HCl 200 mg PO DAILY 11/02/16 03/16/24 Propranolol [Inderal] 0 mg PO DAILY 05/27/17 03/16/24 Sertraline [Zoloft] 0 mg PO DAILY 05/27/17 03/16/24 Carisoprodol [Soma] 350 mg PO Q8H PRN #20 tablet 07/12/18 03/16/24 Ondansetron Odt [Zofran] 4 mg TL Q6H PRN #10 tablet 11/11/18 03/16/24 Promethazine [Phenergan] 25 - 50 mg PO Q6H PRN #10 tab 11/11/18 03/16/24 Naproxen 500 mg PO BID #20 tablet 03/05/20 03/16/24 tiZANidine [Zanaflex] 4 mg PO Q8H PRN #25 tablet 12/28/21 03/16/24 Famotidine [Acid-Pep] 20 mg PO DAILY 03/16/24 03/16/24 HYDROcod/ACETAM 5/325 [Lengby 5/325] 1 ea PO Q6H PRN #15 tablet 03/16/24 Rimegepant Sulfate [Nurtec Odt] 75 mg PO DAILY 03/16/24 03/16/24 Rosuvastatin Calcium 10 mg PO DAILY 03/16/24 03/16/24 methocarbamoL [Robaxin] 500 mg PO TID PRN #20 tablet 03/16/24 - Allergies Allergies/Adverse Reactions: Allergies Allergy/AdvReac Type Severity Reaction Status Date / Time bupropion HCl * AdvReac Unknown Verified 03/16/24 11:45 [From Wellbutrin] oxycodone AdvReac Nausea Verified 03/16/24 11:45 - Social History Does the pt smoke?: No Smoking Status: Never smoker Does the pt drink ETOH?: No Does the pt have substance abuse?: No - Immunizations Immunizations are current?: Yes - POLST Patient has POLST: No PD ED PE NORMAL - Vitals Vital signs reviewed: Yes - General General: Alert and oriented X 3, Well developed/nourished - Neck Neck: Supple, no meningeal sign, No adenopathy - Cardiac Cardiac: RRR, No murmur - Respiratory Respiratory: No respiratory distress, Clear bilaterally - Abdomen Abdomen: Normal bowel sounds, Soft, Non distended, No organomegaly, Other (some tender right lateral abd without guarding nor percussion tender. ) - Back Back: No spinal TTP, Other (right flank with some tenderness to percussion but also just palpation of muscle. s) - Derm Derm: Normal color, Warm and dry - Neuro Neuro: No motor deficit, No sensory deficit Results - Vitals Vitals: Oxygen O2 Source Room air - Labs Labs: Laboratory Tests 03/16/24 03/16/24 03/16/24 12:05 12:44 12:50 WBC 4.4 L RBC 4.63 L Hgb 14.3 Hct 42.1 MCV 90.9 MCH 30.9 MCHC 34.0 RDW 13.4 Plt Count 251 MPV 11.7 H Neut # (Auto) 2.4 Lymph # (Auto) 1.3 L Spencer # (Auto) 0.5 Eos # (Auto) 0.1 Baso # (Auto) 0.1 Absolute Nucleated RBC 0.00 Nucleated RBC % 0.0 Sodium 138 Potassium 4.5 Chloride 108 Carbon Dioxide 26 Anion Gap 4.0 L BUN 16 Creatinine 0.9 Estimated GFR (MDRD) 89 Glucose 104 Calcium 9.4 Total Bilirubin 0.5 AST 21 ALT 43 Alkaline Phosphatase 46 Total Protein 6.3 L Albumin 4.3 Globulin 2.0 L Albumin/Globulin Ratio 2.2 Lipase 31 Urine Color YELLOW Urine Clarity CLEAR Urine pH 6.0 Ur Specific [place] 1.010 Urine Protein NEGATIVE Urine Glucose (UA) NEGATIVE Urine Ketones NEGATIVE Urine Occult Blood NEGATIVE Urine Nitrite NEGATIVE Urine Bilirubin NEGATIVE Urine Urobilinogen 0.2 (NORMAL) Ur Leukocyte Esterase NEGATIVE Ur Microscopic Review NOT INDICATED Urine Culture Comments NOT INDICATED PD Medical Decision Making - ED course Complexity details: reviewed results (no acutee findings on CT. UA without infection. Normal WBC and LFTs. Unclear the diagnosis, but presume muscular pain given lack of other findings. ), considered differential (consider muscular pain, kidney stone or infection, right diverticulitis. Is not exactly in area of appendix. No rash to suggest shingles. ), d/w patient Departure - Departure Disposition: Home, Self Care Clinical Impression: Acute right flank pain Condition: Stable Record reviewed to determine appropriate education?: Yes Instructions: ED Flank Pain Uncertain Cause Follow-Up: YAZAN BELL DO [Primary Care Provider] - Venus Jasso MD [Physician No Access] - Prescriptions: HYDROcod/ACETAM 5/325 [Lengby 5/325] 1 ea PO Q6H PRN #15 tablet PRN Reason: Pain methocarbamoL [Robaxin] 500 mg PO TID PRN #20 tablet PRN Reason: Spasms Comments: Your CT scan does not show any acute abnormalities to account for the pain. In particular no kidney stones or gallbladder inflammation. No signs of colitis. Your urine test is clear without any signs of infection. Blood tests are also good with normal chemistry panel and liver enzymes and pancreatic enzyme. Normal blood count. At this point I would presume muscular type pain for now. I did print out a copy of your CT report for you to have an you can show to your provider. I do not see anything that would hinder your having your surgery on Saturday. Since you are having surgery, avoid any further anti-inflammatories and aspirin. I would suggest Tylenol 500 to 650 mg 4 times daily for the next several days or so. To that add potentially methocarbamol muscle relaxant as this may likely is a more of a muscular pain. In addition you could add hydrocodone every 6-8 hours if needed for worse pain. This would not interfere with the platelet function or such. Recheck if not improving well over the next few days. Heat and gentle stretching and range of motion may be useful as well. I sent your prescription to preferred pharmacy. I am prescribing a short course of narcotic pain medication for you. These are potentially dangerous and addictive medications that should be used carefully. These medications may constipate you. Take an [id number] stool softener such as docusate twice daily with plenty of water while taking these medications. If you go 24 hours without a bowel movement, take [id number] MiraLAX, per package instructions. Do not drink or drive while taking these medications. If you received narcotic or sedating medications while in the emergency department do not drive for 24 hours. Store this medication in a safe, secure place and out of reach of children. It is a violation of federal law to give or sell this medication to another person or to use in a manner other than prescribed. The ED will not refill narcotic prescriptions, including prescriptions lost or stolen. You can dispose of unwanted medications at the [facility]'s office or at several pharmacies such as [facility]. Forms: PCP List Discharge Date/Time: 03/16/24 16:25
[2024-03-16] MEDS: ONDANSETRON 4 MG/2 ML VIAL IVP STA (13:03)
[2024-03-16] MEDS: SODIUM CHLORIDE 0.9% 1,000 ML IV STA (13:03)
[2024-03-16] MEDS: KETOROLAC 15 MG/ML VIAL IVP STA (13:03)
[2024-03-16 13:11] LABS: BILIRUBIN,URINE NEGATIVE (NEGATIVE); GLUCOSE, URINE (UA) NEGATIVE (NEGATIVE); KETONES,URINE (UA) NEGATIVE (NEGATIVE); LEUKOCYTE ESTERASE, URINE NEGATIVE (NEGATIVE); NITRITE,URINE NEGATIVE (NEGATIVE); OCCULT BLOOD,URINE NEGATIVE (NEGATIVE); PROTEIN,URINE NEGATIVE (NEGATIVE); UROBILINOGEN,URINE 0.2 (NORMAL) E.U./dL (NORMAL)
[2024-03-16 13:14] LABS: CLARITY,URINE CLEAR (CLEAR)
[2024-03-16] MEDS ORDERED: iohexoL-300 100 ML VIAL ONE (13:19)
[2024-03-16 13:23] LABS: ALBUMIN 4.3 g/dL (3.2-5.5); ALBUMIN/GLOBULIN RATIO 2.2 (1.0-2.2); BILIRUBIN,TOTAL 0.5 mg/dL (0.2-1.0); CALCIUM 9.4 mg/dL (8.5-10.3); CREATININE 0.9 mg/dL (0.6-1.3); POTASSIUM 4.5 mmol/L (3.5-4.5); TOTAL PROTEIN 6.3 g/dL (6.4-8.9)
[2024-03-16] MEDS: iohexoL-300 100 ML VIAL IVP ONE (14:04)
--- NOTE | 2024-03-16 14:54 | CT Report ---
PROCEDURE: Abdomen/Pelvis W INDICATIONS: right abd/flank pain since last night CONTRAST: Omni 300 100ml TECHNIQUE: After the administration of intravenous contrast, a CT scan of the abdomen and pelvis was performed. Images were recorded and evaluated at appropriate window settings. Reformats: coronal and sagittal. F or radiation dose reduction, the following was used: automated exposure control, adjustment of mA and /or kV according to patient size. COMPARISON: 12/05/2017 FINDINGS: Image quality: Diagnostic Lower chest: Basal scarring and atelectasis. Liver: Small calcification again seen adjacent to the right hemidiaphragm. No suspicious intrinsic li eliza lesion. Gallbladder and biliary system: Unremarkable gallbladder. Nondilated biliary system Pancreas: No ductal dilation Spleen: Nonenlarged Adrenals: Again seen is a right adrenal nodule measuring about 1.2 cm, probably an adenoma. Kidneys: Bilateral pelviectasis, mild, seen previously. No obstructing calcified stone. No solid alise l mass. Vessels and lymph nodes: The main portal vein appears patent. There is probably mixing artifact at th e portal confluence. No abdominal aortic aneurysm. No pathologic lymph nodes by size criteria. Bowel and peritoneum: No evidence of small bowel obstruction. No pathologic ascites. The colon is tor tuous. No significant acute inflammation. Fecal loading is overall mild to moderate. Short segment jejunal intussusception in the left upper quadrant (4/62), no upstream obstruction, thi s is likely physiologic/transient, consider follow-up if there are localizing symptoms in the left up per quadrant. Body wall: Postsurgical changes in the inguinal regions. There is postsurgical material in the right groin. Tiny fat-containing focal hernia. Pelvis: Prostate is heterogeneous and not well evaluated. Bladder is mildly distended Bones: No acute or suspicious osseous finding. IMPRESSION: Mildly distended bladder and mild bilateral pelviectasis. No obstructing calcified stone. These are l ikely chronic findings. Consider also possible chronic mild UPJ obstruction. No bowel obstruction or acute bowel inflammation identified on CT. Other findings as above. Reviewed by: Al Gómez MD on 03/16/2024 2:53 PM PDT Approved by: Al Gómez MD on 03/16/2024 2:53 PM PDT Station ID: [id number]
[2024-03-16 16:23] VITALS: BP 128/91; O2SAT 99
== END 2024-03-16 16:25 | disposition home or self-care (01) ==
LOC: ED 11:26
DX: R10.9 Unspecified abdominal pain (principal)
CPT/HCPCS: 36415; 74177; 80053; 81003; 83690; 85025; 96374; 96375; 99284; Q9967; 81001; 87086